=== PATIENT | female | born 1955 | race Caucasian/White ===

== ENCOUNTER → 2019-04-07 12:15 | Outpatient (BNVA) | payer MEDICARE, OTHER, SELFPAY | PROVIDERS: Family Provider Family Medicine; PCP Family Medicine; Visit Provider Family Medicine | DX: M25.511 Pain in right shoulder (principal); G89.11 Acute pain due to trauma; I26.99 Other pulmonary embolism without acute cor pulmonale | CPT/HCPCS: 85610 ==

== ENCOUNTER 2019-05-10 06:00 | Outpatient (RCR) | payer MEDICARE, OTHER, SELFPAY | END 2019-05-28 23:59 | disposition home or self-care (01) | LOC: TPT 06:00 | PROVIDERS: Family Provider Family Medicine; PCP Family Medicine; Referring Provider Family Medicine; Visit Provider Family Medicine | DX: M25.511 Pain in right shoulder (principal); G89.11 Acute pain due to trauma | CPT/HCPCS: 97110; 97161; G0283 ==

== ENCOUNTER → 2019-05-12 15:04 | Outpatient (BNVA) | payer MEDICARE, OTHER, SELFPAY | PROVIDERS: Family Provider Family Medicine; PCP Family Medicine; Visit Provider Family Medicine | DX: I27.82 Chronic pulmonary embolism (principal); Z79.01 Long term (current) use of anticoagulants | CPT/HCPCS: 85610 ==

== ENCOUNTER 2019-05-29 06:00 | Outpatient (RCR) | payer MEDICARE, OTHER, SELFPAY | END 2019-06-28 23:59 | disposition home or self-care (01) | LOC: TPT 06:00 | PROVIDERS: Family Provider Family Medicine; PCP Family Medicine; Referring Provider Family Medicine; Visit Provider Family Medicine | DX: M25.511 Pain in right shoulder (principal); G89.11 Acute pain due to trauma | CPT/HCPCS: 97110; 97530 ==

== ENCOUNTER → 2019-05-30 13:12 | Outpatient (BNVA) | payer MEDICARE, OTHER, SELFPAY | PROVIDERS: Family Provider Family Medicine; PCP Family Medicine; Visit Provider Nurse Practitioner Family | DX: N39.46 Mixed incontinence (principal) | CPT/HCPCS: 81001 ==

== ENCOUNTER 2019-06-01 15:36 | Outpatient (CLI) | payer MEDICARE, OTHER, SELFPAY ==
--- NOTE | 2019-06-01 15:44 | MR_ITS ---
NOTE: Report was unsigned for reason: Order was edited. Original Signature date and time was: 06/01/19 @ 7532 WS: [id number] MRI LEFT SHOULDER NONCONTRAST TECHNIQUE: Sagittal T2, coronal T1, T2 and proton density imaging. Axial gradient PDE imaging. CLINICAL INFORMATION: worsening shoulder pain COMPARISON: None. FINDINGS: Moderate hypertrophic changes at the AC joint. Mild downsloping of the acromion. Prior postoperative changes rotator cuff anchors with rotator cuff repair. Susceptibility artifact degrades images at the rotator cuff insertion. Chronic appearing full-thickness tear involving the supraspinatus tendon. No normal tendon visualized distally. Chronic atrophy of the infraspinatus muscle belly with high-grade tear involving the infraspinatus tendon. Supraspinatus and infraspinatus tendons appear retracted to the level the glenoid. Fatty atrophy of the supraspinatus and infraspinatus muscle bellies worse involving the infraspinatus. Normal teres minor. Subscapularis appears intact. Biceps tendon appears intact within the bicipital groove. Chronic degenerative fraying of the glenoid labrum which appears grossly intact. Normal visualized soft tissues. MTDD
== END 2019-06-01 15:37 | disposition home or self-care (01) ==
LOC: RADWPI 15:40
PROVIDERS: Family Provider Family Medicine; PCP Family Medicine; Visit Provider Family Medicine
DX: M75.102 Unspecified rotator cuff tear or rupture of left shoulder, not specified as traumatic (principal); M25.512 Pain in left shoulder
CPT/HCPCS: 73221

== ENCOUNTER → 2019-06-08 08:44 | Outpatient (BNVA) | payer MEDICARE, OTHER, SELFPAY | PROVIDERS: Family Provider Family Medicine; PCP Family Medicine; Visit Provider Family Medicine | DX: I27.82 Chronic pulmonary embolism (principal) | CPT/HCPCS: 85610 ==

== ENCOUNTER → 2019-07-19 15:15 | Outpatient (BNVA) | payer MEDICARE, OTHER, SELFPAY | PROVIDERS: Family Provider Family Medicine; PCP Family Medicine; Visit Provider Family Medicine | DX: I26.99 Other pulmonary embolism without acute cor pulmonale (principal) | CPT/HCPCS: 85610 ==

== ENCOUNTER → 2019-08-09 16:37 | Outpatient (BNVA) | payer MEDICARE, OTHER, SELFPAY | PROVIDERS: Family Provider Family Medicine; PCP Family Medicine; Visit Provider Family Medicine | DX: I26.99 Other pulmonary embolism without acute cor pulmonale (principal) | CPT/HCPCS: 85610 ==

== ENCOUNTER 2019-08-26 16:51 | Outpatient (CLI) | payer MEDICARE, OTHER, SELFPAY ==
[2019-08-26 17:48] LABS: INR 1.48 (0.8-1.2)
== END 2019-08-26 16:52 | disposition home or self-care (01) ==
LOC: LAB 16:54
PROVIDERS: PCP Family Medicine; Visit Provider Family Medicine
DX: I27.82 Chronic pulmonary embolism (principal)
CPT/HCPCS: 85610

== ENCOUNTER → 2019-09-05 08:29 | Outpatient (BNVA) | payer MEDICARE, OTHER, SELFPAY | PROVIDERS: PCP Family Medicine; Visit Provider Family Medicine | DX: Z86.711 Personal history of pulmonary embolism (principal) | CPT/HCPCS: 85610 ==

== ENCOUNTER → 2019-11-04 10:42 | Outpatient (BNVA) | payer MEDICARE, OTHER, SELFPAY | PROVIDERS: PCP Family Medicine; Visit Provider Family Medicine | DX: E11.9 Type 2 diabetes mellitus without complications (principal); E55.9 Vitamin D deficiency, unspecified | CPT/HCPCS: 80053; 80061; 82306; 83036; 85025 ==

== ENCOUNTER → 2019-12-21 09:55 | Outpatient (BNVA) | payer MEDICARE, OTHER, SELFPAY | PROVIDERS: PCP Family Medicine; Visit Provider Family Medicine | DX: I27.82 Chronic pulmonary embolism (principal); I10 Essential (primary) hypertension; Z79.01 Long term (current) use of anticoagulants | CPT/HCPCS: 85610 ==

== ENCOUNTER → 2020-01-06 13:43 | Outpatient (BNVA) | payer MEDICARE, OTHER, SELFPAY | PROVIDERS: PCP Family Medicine; Visit Provider Family Medicine | DX: I26.99 Other pulmonary embolism without acute cor pulmonale (principal) | CPT/HCPCS: 85610 ==

== ENCOUNTER → 2020-01-23 12:00 | Outpatient (BNVA) | payer MEDICARE, OTHER, SELFPAY | PROVIDERS: PCP Family Medicine; Visit Provider Family Medicine | DX: Z01.419 Encounter for gynecological examination (general) (routine) without abnormal findings (principal); B37.9 Candidiasis, unspecified; Z23 Encounter for immunization; Z12.31 Encounter for screening mammogram for malignant neoplasm of breast; K63.5 Polyp of colon; Z78.9 Other specified health status | CPT/HCPCS: 88175 ==

== ENCOUNTER → 2020-03-16 09:38 | Outpatient (BNVA) | payer MEDICARE, OTHER, SELFPAY | PROVIDERS: PCP Family Medicine; Visit Provider Family Medicine | DX: I27.82 Chronic pulmonary embolism (principal) | CPT/HCPCS: 85610 ==

== ENCOUNTER → 2020-04-11 14:32 | Outpatient (BNVA) | payer MEDICARE, OTHER, SELFPAY | PROVIDERS: PCP Family Medicine; Visit Provider Family Medicine | DX: I27.82 Chronic pulmonary embolism (principal) | CPT/HCPCS: 85610 ==

== ENCOUNTER 2020-04-19 08:57 | Outpatient (CLI) | payer MEDICARE, OTHER, SELFPAY ==
--- NOTE | 2020-04-19 10:00 | MM_ITS ---
WS: [id number] BILATERAL DIGITAL SCREENING MAMMOGRAPHY WITH CAD CLINICAL INFORMATION: screening HISTORY: Screening mammogram. No current complaints. COMPARISON: TECHNIQUE: Bilateral CC and MLO views. FINDINGS: Scattered fibroglandular densities bilaterally. No suspicious focal mass, asymmetry, calcifications, or architectural distortion. No evidence of malignancy. Punctate calcifications. MM/[place] [id number] IMPRESSION: BI-RADS: 2-Benign FOLLOW UP: 1 Year Follow-up Recommend return to annual screening mammography.
== END 2020-04-19 08:58 | disposition home or self-care (01) ==
LOC: RADSHAW 09:03
PROVIDERS: PCP Family Medicine; Visit Provider Family Medicine
DX: Z12.31 Encounter for screening mammogram for malignant neoplasm of breast (principal)
CPT/HCPCS: 77067

== ENCOUNTER → 2020-04-24 10:46 | Outpatient (BNVA) | payer MEDICARE, OTHER, SELFPAY | PROVIDERS: PCP Family Medicine; Visit Provider Nurse Practitioner Family | DX: E11.9 Type 2 diabetes mellitus without complications (principal); E55.9 Vitamin D deficiency, unspecified; Z79.01 Long term (current) use of anticoagulants; M25.511 Pain in right shoulder; G89.29 Other chronic pain; Z78.0 Asymptomatic menopausal state; R42 Dizziness and giddiness | CPT/HCPCS: 80053; 80061; 82306; 83036; 85025; 85610 ==

== ENCOUNTER 2020-04-30 14:14 | Outpatient (CLI) | payer MEDICARE, OTHER, SELFPAY ==
--- NOTE | 2020-04-30 14:42 | CT_ITS ---
WS: [id number] CT RIGHT SHOULDER, NONCONTRAST. HISTORY: M75.101 - Unspecified rotator cuff tear or rupture of right shoulder, not specified as traum atic Technique: All CT scans at [facility] use at least one of these dose optimization techniq ues: automated exposure control; mA and/or kV adjustment per patient size (includes targeted exams wh ere dose is matched to clinical indication); or iterative reconstruction. DLP: 1084.82 mGy-cm. COMPARISON: 06/01/2019. Moderate hypertrophic soft tissue changes at the AC joint and mild osteophytic development at the AC joint. No fractures. Single anchor has been placed in the humeral head. Humeral head is well position ed at the glenoid. No fractures or loose bodies. Moderate atrophy of the infraspinatus muscle and the supraspinatus muscle. Subscapularis and teres minor are normal. Visualized RIGHT lung is clear. No adenopathy or soft tissue masses. CT/CT shoulder RT wo con* [id number] IMPRESSION: 1. Single anchor in the humeral head from prior rotator cuff repair. 2. No fractures. 3. Moderate AC joint arthritis. 4. Moderate atrophy of the infraspinatus and supraspinatus muscles.
== END 2020-04-30 14:15 | disposition home or self-care (01) ==
LOC: RAD 14:17
PROVIDERS: PCP Family Medicine; Visit Provider Orthopaedic Surgery
DX: M75.101 Unspecified rotator cuff tear or rupture of right shoulder, not specified as traumatic (principal); M13.811 Other specified arthritis, right shoulder
CPT/HCPCS: 73200

== ENCOUNTER 2020-06-05 12:58 | Outpatient (CLI) | payer MEDICARE, OTHER, SELFPAY ==
--- NOTE | 2020-06-05 16:56 | ONC CON_ITS ---
Dr. Ramon New Patient Note Patient: Amna Romero Unit #: [id number]: [id number] Dicatated By: Bhanu Ramon M.D.Date of Visit: Jun 05, 2020 Onc MED New Patient/Consult Referring Physician: Dr. JENA DUCKWORTH D.O. Chief Complaint: Factor V Leiden mutation. History of Present Illness: This is a 64-year-old woman with known heterozygosity for the factor V Leiden mutation and with prior history of lower extremity deep vein thrombosis and pulmonary embolism. She has been having ongoing problems with right shoulder pain following an injury she sustained to the right shoulder in a fall back in February 2019. She had previous arthroscopic surgery on the right shoulder in 2006 and she had a rotator cuff repair in 2012. She recently had follow-up at the orthopedic clinic with Dr. Frias, and the plan now is to proceed with reverse total shoulder arthroplasty. Her history is significant in that she had been admitted to the hospital with lower extremity deep vein thrombosis and bilateral pulmonary emboli approximately 15 years ago. She has been on long-term anticoagulation with warfarin, and during that time she has had some superficial thrombophlebitis, but no further deep vein thrombosis and no further pulmonary embolism. She has been feeling pretty good generally, though her energy is not that good. She does stay tired, but she is active. Her ECOG score is 1. She has good appetite. She has no fever, night sweats, or hot flashes. She has some mild exertional dyspnea. She has just occasional cough. She does not complain of chest pain. She has no GI complaints other than some constipation, which she manages adequately with fiber. She has some urinary frequency and incontinence. She has pain in her right shoulder and she has pain in both feet. She does not complain of headache. She does have problems with balance and she also has dizziness/vertigo. She has neuropathy in her feet. She has easy bruising. She has also tended to develop knots at her injection sites at times when she has been on Lovenox. Past Medical History: Her medical history includes anxiety, chronic venous insufficiency of the lower extremities, depression, history of colonic polyps, history of pulmonary embolism, hypertension, lumbosacral radiculopathy, mild cognitive impairment, obstructive sleep apnea, psoriasis, pulmonary hypertension, and type II diabetes. Past Surgical History: Her surgical/procedural history includes left foot surgery in 2019, excision of mass in the area of the left knee in 2018, colonoscopy in 2016, repair of hammertoe right foot in 2016, right rotator cuff repair in 2012, and arthroscopic right shoulder surgery in 2006. Medications: Atorvastatin Calcium 1 (20 mg) Tablet Oral daily, Cholecalciferol 1 (50 mcg ) Tablet Oral daily, Citalopram Hydrobromide 1 (40 mg) Tablet Oral daily, Clobetasol Propionate Cream Topical PRN, Coumadin 1 (2 mg) Tablet Oral daily, Irbesartan-hydroCHLOROthiazide 1 (150-12.5 mg) Tablet Oral b.i.d., Meclizine HCl 1 (25 mg) Tablet Oral t.i.d. PRN, Potassium 1 (99 mg) Tablet Oral daily Allergies: adhesive tape and Melatonin. Social History: Ms. Romero is . She is retired. She is a non-smoker. She does not drink alcohol. Family History: Father of heart attack at age 63. Mother with dementia at age 68. A brother has hypertension. A sister has diabetes. There are cousins on her father side of the family who also have factor V Leiden mutation. Review Of Symptoms: Constitutional - Her energy is not very good, and she does tend to feel tired. She is active, though. Her appetite is good. She has no fever, night sweats, or hot flashes. ECOG score is 1, Eyes - No change in vision, but she has been told she has the beginning of glaucoma, ENMT - No hearing loss or tinnitus. No sinus congestion/drainage. No mouth sores. No sore throat or difficulty swallowing, Hematologic/Lymphatic - She has easy bruising, Respiratory - She has mild shortness of breath. She has just occasional cough. No pleuritic pain or hemoptysis, Cardiovascular - No angina pain. No palpitations, Gastrointestinal - No nausea or vomiting. No heartburn or acid reflux. She has constipation, which she has been managing it adequately with fiber. No blood in the stool or black stools, Genitourinary (F) - No dysuria or hematuria. No urinary frequency. No urgency or incontinence, Musculoskeletal - She has pain in her right shoulder and she has pain in both feet, Integumentary - She has psoriasis. It is adequately managed with topical therapy, Neurologic - She has difficulty with balance and she has dizziness/vertigo. She tends to stumble a lot and she is prone to falling. She also reports having some memory/cognitive issues, Psychiatric - She has anxiety and depression. It is adequately managed on medication. No insomnia. Vital Signs: Performed on Jun 05, 2020 13:54: 8, 6, 0.00, 0.00 sq.m, 96 %, 65 /min, 18 /min, 160/76 mm(hg) (HIGH), 96.6 F (LOW), and 218 lbs (HIGH). Physical Examination: Constitutional - She appears to be in good general health, Eyes - Sclerae nonicteric. Conjunctivae clear, ENMT - No lesions noted in the oral cavity, Neck - No mass or thyromegaly, Hematologic/Lymphatic - No cervical, clavicular, or axillary adenopathy, Respiratory - Lungs are clear with good air movement bilaterally, Cardiovascular - Heart rhythm is regular. There is a II/ systolic murmur. There is no gallop or rub noted, Abdomen - Moderately distended but soft. Liver and spleen are not enlarged. There is no abdominal mass or ascites noted and there is no inguinal adenopathy, Back/Spine - No spine or CVA tenderness noted, Extremities - No edema. There is some deformity on the dorsum of the left foot medially. Dorsalis pedis pulses are palpable bilaterally. There are multiple purpuric lesions on the arms, Integumentary - No rashes. No suspicious skin lesions noted, Neurologic - No focal neurologic deficits noted. Problem List: 1. 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 2. She has a remote history of lower extremity deep vein thrombosis and bilateral pulmonary emboli. She has been on long-term anticoagulation with warfarin with no further thromboembolism. 3. Rotator cuff tear arthropathy of the right shoulder with planned reverse total shoulder arthroplasty. 4. Lumbosacral radiculopathy at L5. 5. Hypertension. 6. Type 2 diabetes, currently not requiring medication. 7. Obstructive sleep apnea. 8. Pulmonary hypertension. 9. Psoriasis. 10. Chronic venous insufficiency of the lower extremities. 11. Mild cognitive impairment. 12. History of colonic polyps. 13. Anxiety/depression. Problems Addressed with this Encounter and Plan: Patient with thrombophilia in association with heterozygosity for the factor V Leiden mutation. She has a remote history of lower extremity deep vein thrombosis and bilateral pulmonary emboli. She has been on long-term anticoagulation with warfarin with no further thromboembolism. She also has rotator cuff tear arthropathy of the right shoulder, and the plan now is to proceed with reverse total shoulder arthroplasty. She is aware that she will be at higher risk for thromboembolism with the procedure. She will need bridging with Lovenox. She has the medication available at the appropriate dosage for her weight, and she will be given specific instructions on her anticoagulation management as soon as we have a date for her procedure. Signed By: Bhanu Ramon M.D. <<Signature on File>>
== END 2020-06-05 12:59 | disposition home or self-care (01) ==
LOC: ONCMED 13:05
PROVIDERS: PCP Family Medicine; Visit Provider Internal Medicine Medical Oncology
DX: D68.51 Activated protein C resistance (principal); M75.101 Unspecified rotator cuff tear or rupture of right shoulder, not specified as traumatic; Z86.718 Personal history of other venous thrombosis and embolism; Z79.01 Long term (current) use of anticoagulants; Z86.711 Personal history of pulmonary embolism
CPT/HCPCS: 99204

== ENCOUNTER → 2020-06-20 14:04 | Outpatient (BNVA) | payer MEDICARE, OTHER, SELFPAY | PROVIDERS: PCP Family Medicine; Visit Provider Family Medicine | DX: Z79.01 Long term (current) use of anticoagulants (principal) | CPT/HCPCS: 85610 ==

== ENCOUNTER → 2020-06-25 15:27 | Outpatient (BNVA) | payer MEDICARE, OTHER, SELFPAY | PROVIDERS: PCP Family Medicine; Visit Provider Family Medicine | DX: D68.51 Activated protein C resistance (principal); M25.511 Pain in right shoulder; G89.29 Other chronic pain; I26.99 Other pulmonary embolism without acute cor pulmonale; Z68.38 Body mass index [BMI] 38.0-38.9, adult | CPT/HCPCS: 85610 ==

== ENCOUNTER → 2020-07-24 10:54 | Outpatient (BNVA) | payer MEDICARE, OTHER, SELFPAY | PROVIDERS: PCP Family Medicine; Visit Provider Orthopaedic Surgery | DX: Z01.812 Encounter for preprocedural laboratory examination (principal); Z20.828 Contact with and (suspected) exposure to other viral communicable diseases; Z20.822 Contact with and (suspected) exposure to COVID-19 | CPT/HCPCS: 87635 ==

== ENCOUNTER 2020-07-30 10:39 | Observation (INO) | payer MEDICARE, OTHER, SELFPAY ==
[2020-07-18 12:46] VITALS: BMI 38.2
--- NOTE | 2020-07-18 13:45 | ANES.PREANE2 ---
Pre-Anesthetic Assessment Pre-Anesthetic Assessment: Height/Weight: Height 1.6 m Weight 97.795 kg Preop Diagnosis: Osteoarthritis Right shoulder Proposed Procedure: Operation Date: 07/30/20 09:40 Proposed Procedures p right reverse total shoulder arthoplasty 74916 M75.101(Right) - Ravinder Frias MD Was Beta Eugenie taken within 24 hours: N/A Was Clonidine taken within 24 hours: N/A Social: Social History: No alcohol and No tobacco Exam: Pre-Anes Outpt Exam: alert, oriented x 3, clear to auscultation bilaterally and regular rate & rhythm Airway: Submandibular: WNL Cervical ROM: WNL MP: 2 Dentition: Full Pulmonary: Pulmonary: Sleep apnea CV/HEM: CV/HEM: DVT and HTN Comments: Factor V def Metabolic: Metabolic: DM and Morbid obesity Neuropsych: Neuropsych: Anxiety and Depression Anesthetic Plan: ASA status: 3 Anesthesia: General and Regional (specify below) (Interscalene) Risk of > 500 ml blood loss (7ml/kg in children): No PFSH Anesthesia PFSH: Medical History (Updated 06/25/20 @ 15:42 by Silvana Bass LPN) Anxiety Colon polyps Diabetes type 2, controlled Enrolled in chronic care management Essential hypertension Hammertoe of right foot REPAIRED History of closed shoulder dislocation Lumbosacral radiculopathy at L5 Minimal cognitive impairment Mixed stress and urge urinary incontinence Morbid obesity with BMI of 40.0-44.9, adult Obstructive sleep apnea of adult Post-menopausal Psoriasis Pulmonary embolism Pulmonary hypertension Recurrent falls while walking Rotator cuff tear arthropathy of right shoulder Synovial cyst of lumbar spine Urinary incontinence Venous insufficiency of both lower extremities Surgical History H/O repair of right rotator cuff H/O shoulder surgery right/2006 History of varicose vein stripping Family History Father Diabetes CAD (coronary artery disease) Hyperlipidemia Social History Smoking and tobacco status: never smoked Alcohol intake: never Adopted: No Caregiver/support person: No Lives independently: No Household members: spouse Marital status: Current occupational status: retired History of recent travel: No Current gender identity: Female Data Anesthesia Cardiac Studies: No Data to Display
[2020-07-30] VITALS (19 sets, daily range): BP systolic 96–139; BP diastolic 63–90; PULSE 75–112; RESP 12–20; TEMP 36.4–37.1; O2SAT 92–100
[2020-07-30] MEDS: gabapentin 300 mg Capsule PO (06:10)
[2020-07-30] MEDS: CELEcoxib 200 mg Capsule 400 MG PO (06:10)
[2020-07-30] MEDS: acetaminophen 500 mg Tablet 1000 MG PO ×3 (06:10→21:16)
[2020-07-30] MEDS: oxyCODONE 20 mg ER (12 HR) Tablet PO (06:24)
[2020-07-30] MEDS: sodium chloride 0.9% 1,000 ML 30 ML IV (06:32)
[2020-07-30] MEDS: fentaNYL 50 mcg/mL INJ 2mL 100 MCG IVP (06:47)
--- NOTE | 2020-07-30 06:54 | P.ANESUD_ITS ---
Pre-Anesthetic Update Pre-Anesthetic Assessment: Date of Surgery/Procedure: 07/30/20 Preop Sirena gnosis: Osteoarthritis Right shoulder Proposed Procedure: Operation Date: 07/30/20 07:00 Proposed Procedures p right reverse total shoulder arthoplasty 00167 M75.101(Right) - Ravinder Frias MD Any changes to Pre-Anesthetic Assessment?: No Last Intake: Intake Last Liquid Date 07/29/20 Last Liquid Time 19:00 Last Solid Date 07/29/20 Last Solid Time 19:00 Vitals: Temperature 98 F 07/30/20 06:13 Temperature Source Temporal Artery S can 07/30/20 06:13 Pulse Rate 75 07/30/20 06:13 Respiratory Rate 16 07/30/20 06:47 Respiratory Effort 07/30/20 06:47 Respiratory Depth Normal 07/30/20 06:47 Respiratory Patter n 07/30/20 06:47 Blood Pressure 131/83 07/30/20 06:13 Blood Pressure Albertina n 99 07/30/20 06:13 Pulse Oximetry 96 07/30/20 06:47 Oxygen Delivery Me thod 07/30/20 06:13 Exam: Pre-Anes Outpt Exam: alert, oriented x 3, clear to auscultation bilaterally and regular rate & rhythm Cardiac Studies: No Data to Display
--- NOTE | 2020-07-30 06:54 | ANES.PROC ---
Anesthesia Procedures Procedure/Date: 07/30/20 Nerve Block ^: Nerve Block 1: Main Anesthesia: general anesthesia Time Out Performed: Yes Consent: requested by attending/covering physician, from patient, risks and benefits reviewed and patient agrees to proceed Nerve block location: interscalene (right) Anesthesia monitors applied: pulse oximetry, EKG and BP cuff Nerve block position: semi sitting Anesthetic Used: ropivicaine 0.5% Amount of anesthesia used (mL): 30 Ultrasound used to: recognize landmarks and visualize and ID brachial plexus Nerve Stimulator Used?: No Interscalene/Femoral BLK: 2 stimuplex 22 g needle used for position and inplane approach Injection: neg aspiration of heme Patient Tolerated Procedure: well Complications: none
--- NOTE | 2020-07-30 07:00 | P.HP_ITS ---
Same Day Surgery H&P Indication for Procedure/HPI DATE OF PROCEDURE: July 30, 2020 CHIEF COMPLAINT/INDICATIONFOR SURGICAL PROCEDURE: Massive tear right rotator cuff. Chronic pain and functional loss. PREOP DIAGNOSIS: Osteoarthritis Right shoulder PLANNED PROCEDRUE: Operation Date: 07/30/20 07:00 Proposed Procedures p right reverse total shoulder arthoplasty 62320 M75.101(Right) - Ravinder Frias MD Medications/Allergies* Home Medications Medication Instructions Recorded Confirmed Type clobetasol 0.05 % topical spray 1 spray TOPICAL DAILY ml 05/30/19 07/30/20 History potassium 99 mg tablet 198 mg PO DAILY 05/30/19 07/30/20 History magnesium 800 mg PO DAILY 07/18/20 07/30/20 History Vitamin D3 150 mcg PO DAILY 07/30/20 07/30/20 History atorvastatin 20 mg PO DAILY 07/30/20 07/30/20 History citalopram 40 mg PO DAILY 07/30/20 07/30/20 History irbesartan-hydrochlorothiazide 1 tab PO DAILY 07/30/20 07/30/20 History Allergies/Adverse Reactions Allergy/AdvReac Type Severity Reaction Status Date / Time melatonin Allergy Unknown rash Verified 06/25/20 15:14 adhesive tape Allergy PEELS SKIN Verified 06/25/20 15:14 Current Medications: Generic Name Dose Route Start Last Admin Trade Name Freq PRN Reason Stop Dose Admin Sodium Chloride 1,000 mls @ 30 mls/hr 07/30/20 05:45 07/30/20 06:32 Sodium Chloride 0.9% IV 07/31/20 05:44 30 mls/hr .Q24H DEREK Administration Pertinent History/Comorbid Conditions* Medical History (Updated 05/02/20 @ 11:36 by Mame Yu MD) Anxiety Colon polyps Diabetes type 2, controlled Enrolled in chronic care management Essential hypertension Hammertoe of right foot REPAIRED History of closed shoulder dislocation Lumbosacral radiculopathy at L5 Minimal cognitive impairment Mixed stress and urge urinary incontinence Morbid obesity with BMI of 40.0-44.9, adult Obstructive sleep apnea of adult Post-menopausal Psoriasis Pulmonary embolism Pulmonary hypertension Recurrent falls while walking Rotator cuff tear arthropathy of right shoulder Synovial cyst of lumbar spine Urinary incontinence Venous insufficiency of both lower extremities Surgical History (Updated 07/01/19 @ 05:35 by Soham Piña DO) H/O repair of right rotator cuff H/O shoulder surgery right/2006 History of varicose vein stripping Family History (Updated 03/29/19 @ 13:55 by Jovita Zambrano LPN, RT) Diabetes Father CAD (coronary artery disease) Father Hyperlipidemia Father Social History Smoking and tobacco status: never smoked Alcohol intake: never Adopted: No Caregiver/support person: No Lives independently: No Household members: spouse Marital status: Current occupational status: retired History of recent travel: No Current gender identity: Female Pertinent Exam Findings alert, oriented x 3, clear to auscultation bilaterally, regular rate & rhythm and operative site marked Recommendations Surgery/Procedure today Coding Level of Care Code Acute Nursing Attendant for Angela Garzon
[2020-07-30] MEDS: tranexamic acid 1,000 mg/10mL SDV 2000 MG IRRIGATION (07:57)
--- NOTE | 2020-07-30 09:59 | XRR_ITS ---
PROCEDURE INFORMATION: Exam: XR Right Shoulder Exam date and time: 07/30/2020 10:30 AM Age: 64 years old Clinical indication: Device placement; Joint replacement hardware; Prior surgery; Surgery date: Post-operative (0-2 days); Surgery type: Sp right shoulder replacement TECHNIQUE: Imaging protocol: XR Right shoulder. Views: 2 or more views. COMPARISON: CT shoulder RT wo con* [id number] 04/30/2020 2:39 PM FINDINGS: Bones/joints: The patient has undergone recent insertion of a total shoulder prosthesis. Gas is present in the soft tissues from the recent surgery. No fractures are seen. Soft tissues: See Bones/joints finding. XR/XR shoulder RT min 2V* [id number] IMPRESSION: Satisfactory appearance of the shoulder prosthesis.
--- NOTE | 2020-07-30 10:03 | P.OP_ITS ---
Operative Report Date of procedure: July 30, 2020 Pre-op Diagnosis: Irrepairable tear rotator cuff right shoulder Post-op diagnosis: same Post-op Findings: Same Procedure Done: Right reverse total shoulder Pathology: none sent Surgeon: Ravinder Frias Anesthesia: General and Nerve Block (Interscalene block) Estimated blood loss (mL): 300 Complications: None Findings: The patient had a massive tear involving the entirety of the supraspinatus and infraspinatus with significant muscular atrophy Disposition: PACU Procedure: An intrascalene blocks provided the holding area. The patient was taken to the operating room and given a general anesthesia. They were given 2 g of Ancef. A Ibarra stand was covered and use to support support the arm A timeout was performed. A 10 cm long incision was made over the deltopectoral groove and dissection carried out with a scalpel blade to the deltopectoral interval. The cephalic vein was identified and retracted laterally. Digital dissection was accomplished to free lesions beneath the deltoid and beneath the coracobrachialis musculature. The biceps was tenodesed to the proximal pe ctoralis major with to Ethibond sutures and divided just proximal to that level. An Nima medium tissue protector was used to retract the pectoralis major and the deltoid. Utilizing cautery the subscapularis was released anteriorly using to the remaining biceps stump as a guide in full-thickness with the capsule and freed distally at the level of the anterior humeral circumflex vessels. The gl enohumeral joint include bending externally rotated and dislocated anteriorly. A freehand cut was made with the saw at the level of the articular cartilage with approximately 30 degrees of retroversion. The proximal humerus was then broached and prepared for a 3B Aequalis Ascend Flex humal stem and covered with a protective plate.. Utilizing electrocautery the glenoid was exposed circumferentially. The centering guide was used to place the central guidepin and the glenoid ream down to sclerotic bone. The 10 degree inferior angle was used on the guidepin and to preferentially remove inferior glenoid and patient's superior inclination of the glenoid. A 25mm Tornier Aequalis PerFORM REversed glenoid baseplate was then secured in place with a central 34 mm screw, a superior locking 34 mm screw, an inferior locking 40 mm screw, an anterior 18 mm screw and a posterior 14 mm screw. A 39 mm standard Aequalis perFORM ReversedGlenosphere was then placed. A trial reduction with the reversed insert with a thickness of +6 mm mm provided adequate stability. The final size 3B Aequalis Awscend Flex humal stem was press-fit into place with a 0mm reversed tray. The Flex Shoulder system 39 mm mm +6 mm mm tray was placed in the shoulder reduced with a stable reduction. The subscapularis was repaired with the 3 locking ultratape sutures through the tendon that were passed through 4 d rill holes from the bicipital groove exiting the greater tuberosity. The sutures were then brought through a 4-hole mini frag plate on the tuberosity and secured which tightly kayla the subscapularis over the lesser tuberosity with the arm held in 30 degrees of external rotation. The sutures were then doubled over in a free needle back through the tendon. The wound was irrigated with a solution of 100 cc of saline with 1 g of tranexamic acid and 80 mg of gentamicin. The deltopectoral interval was closed with 0 Vicryl. The subcutaneous tissues were closed with 2-0 Stratafix. The skin was closed with a running 4-0 Stratafix. Sterile dressings were applied. The patient was placed in a sling extubated and taken to recovery room in stable condition. 1) Tornier Aequalis Ascend Flex 3B stem 2) Flex Shoulder System reversed tray +0mm 3) Flex Shoulder System 39 mm +6 mm reversed insert 4) Aequalis PerFORM Reversed 25 standard baseplate 5) Aequalis perForm Reversed 39 mm standard glenosphere 6) Glenoid screws: central 34 mm, superior 34 mm inferior 40 mm, anterior 18 mm, posterior 14 mm
--- NOTE | 2020-07-30 10:08 | SUR.OPER ---
AT THE END OF THE PROCEDURE, WE TOOK THE DRAPES OFF, THE PATIENT GOT A SKIN TEAR RIGHT ABOVE HER INCISION THAT WAS COVERED WITH TELFA AND TEGADERM. WE NOTICED THAT SHE ALSO HAD A SKIN TEAR ON HER RIGHT FOREARM. THAT WAS COVERED WITH AN OPSITE.
--- NOTE | 2020-07-30 10:12 | P.PCN_ITS ---
PACU note PACU note: VSS, Good respiratory effort, report to SU[employer] Post-Anesthesia Exam: awake
--- NOTE | 2020-07-30 10:12 | PM.PACU ---
PACU note PACU note: VSS, Good respiratory effort, report to NETWORK ADMINISTRATOR Post-Anesthesia Exam: awake
[2020-07-30] MEDS: sodium chloride 0.9% 1,000 ML 80 ML IV ×2 (11:42→22:11)
--- NOTE | 2020-07-30 14:26 | SUR.PHASEI ---
1006- ORAL AIRWAY REMOVED, SIMPLE MASK AT 10LPM SAT 98%
[2020-07-30] MEDS: ceFAZolin 1,000 MG in sodium chloride 0.9% (plus) 50 ML 100 MG IV ×2 (14:40→22:10)
--- NOTE | 2020-07-30 14:51 | ANE.PACU2 ---
Inpatient post-anesthesia follow up: Airway intact: Yes Vital signs: Temperature 98.6 F Pulse Rate 88 Respiratory Rate 15 Blood Pressure 111/77 Pulse Oximetry 95 Oxygen Delivery Me thod Nasal Cannula Oxygen Flow Rate 2 Fraction of Inspir ed Oxygen Hydration adequate: Yes Nausea and vomiting: No Pain level: 1 Mental status: Baseline
--- NOTE | 2020-07-30 15:51 | PM.PN ---
Subjective Subjective: Interval history: Block still intact. No pain Vitals/I&O/Wt Last Vital Signs Temp 98.6 F 07/30/20 11:19 Pulse 88 07/30/20 11:19 Resp 15 07/30/20 11:19 BP 111/77 07/30/20 11:19 Pulse Ox 95 07/30/20 11:19 07/30/20 07/30/20 07/30/20 06:59 14:59 22:59 Intake Total 316.5 / 316.5 Output Total 300 / 300 Balance 16.5 / 16.5 Physical Exam Narrative: EXAM NARRATIVE: Dressing clean and dry A&P Assessment and plan (1) Rotator cuff tear arthropathy of right shoulder: Status: Resolved (2) Status post reverse arthroplasty of right shoulder: Status: Acute Attestations Medical Necessity Statement*: Slow progress thus far with physical therapy. Will discharge home tomorrow if ambulatory. May need fci. Coding Level of Care Code Acute Property Management Intern for Angela Garzon Diagnoses Rotator cuff tear arthropathy of right shoulder M75.101; M12.811 Status post reverse arthroplasty of right shoulder Z96.611
[2020-07-30 17:11] LABS: INR 0.99 (0.8-1.2)
[2020-07-30] MEDS: CELEcoxib 200 mg Capsule PO (17:26)
[2020-07-30] MEDS: warfarin 2 mg Tablet 4 MG PO (17:26)
--- NOTE | 2020-07-30 19:59 | PC.NURSE ---
Pt informed this nurse that her had checked himself out of rehab and was on his way here. She expressed she would not like him to visit at this time. This nurse informed the day and night charge nurses, Alesia and Marsha, and night security, Keon. An attempt was made to inform the ER admissions desk, but there was no answer.
[2020-07-31] VITALS (9 sets, daily range): BP systolic 111–130; BP diastolic 66–79; PULSE 66–79; RESP 16–18; TEMP 36.4–36.6; O2SAT 93–99
[2020-07-31] MEDS: oxyCODONE 5 mg IR Tab/Cap PO ×3 (00:16→11:04)
[2020-07-31] MEDS: ceFAZolin 1,000 MG in sodium chloride 0.9% (plus) 50 ML 100 MG IV (06:22)
[2020-07-31] MEDS: acetaminophen 500 mg Tablet 1000 MG PO ×2 (06:23→13:56)
[2020-07-31] MEDS: cholecalciferol (vitamin D3) 1,000 unit Tablet 2000 UNIT PO (08:49)
[2020-07-31] MEDS: magnesium oxide 400 mg tablet 800 MG PO (08:49)
[2020-07-31] MEDS: losartan 50 mg Tablet PO (08:49)
[2020-07-31] MEDS: hydroCHLOROthiazide 25 mg Tablet 12.5 MG PO (08:50)
[2020-07-31] MEDS: atorvastatin 40 mg Tablet 20 MG PO (08:50)
[2020-07-31] MEDS: CELEcoxib 200 mg Capsule PO (08:50)
[2020-07-31] MEDS: citalopram 20 mg Tablet 40 MG PO (08:50)
[2020-07-31] MEDS: warfarin 2 mg Tablet 4 MG PO (13:56)
--- NOTE | 2020-08-01 16:36 | P.DS_ITS ---
Discharge Providers Date of Admission: 07/30/20 10:39 Date of Discharge: July 31, 2020 Attending Provider at Admission: Ravinder Frias MD Attending Provider at Discharge: Ravinder Frias MD Primary Care Provider: Mame Yu MD Diagnoses at Discharge Discharge Diagnosis (1) Rotator cuff tear arthropathy of right shoulder: Status: Resolved (2) Status post reverse arthroplasty of right shoulder: Status: Acute Permanent problem details: We will mobilize with therapy. Occupational therapy to work on passive range of motion (3) Factor 5 Leiden mutation, heterozygous: Status: Acute Reason for Visit Reason for Visit: right reverse total shoulder arthoplasty 97375 Hospital Course Hospital Course The patient was admitted after elective right reverse total shoulder arthroplasty. Her pain was well controlled with the interscalene block and oral medications. By the first day she was independent with ambulation and conrado ating her home exercise program. She was begun on her Coumadin the evening of of surgery. He was discharged home on the first postoperative day. Physical Exam Narrative: EXAM NARRATIVE: On the day of discharge her incision was clean and free of drainage. She could fire her deltoid and her biceps. No distal neurovascular deficits were noted. Discharge Data Data Completed and Pending: Completed Studies During Hospitalization Category Date Time Status XR shoulder RT mi n 2V* [id number] Routin e Exams 07/30/20 09:59 Completed Vitals: Last Vital Signs Temp 97.6 F 07/31/20 15:09 Pulse 66 07/31/20 15:09 Resp 18 07/31/20 15:09 BP 119/79 07/31/20 15:09 Pulse Ox 99 07/31/20 15:09 Discharge Plan Discharge Patient Disposition: Home Condition: Stable Prescriptions: New celecoxib 200 mg capsule 200 mg PO Q12H 15 Days Qty: 30 RF: 0 oxycodone 5 mg tablet 5 mg PO Q4H PRN (Reason: pain) Qty: 40 RF: 0 acetaminophen 500 mg capsule 1,000 mg PO Q8H 14 Days Qty: 84 RF: 0 Continued clobetasol 0.05 % spray,non-aerosol 1 spray TOPICAL DAILY RF: 0 potassium 99 mg tablet 198 mg PO DAILY RF: 0 warfarin 2 mg tablet See Rx Instructions .ROUTE .COMPLEX Qty: 60 RF: 2 magnesium 200 mg Tablet 800 mg PO DAILY RF: 0 atorvastatin 20 mg tablet 20 mg PO DAILY RF: 0 citalopram 40 mg tablet 40 mg PO DAILY RF: 0 irbesartan-hydrochlorothiazide 150-12.5 mg tablet 1 tab PO DAILY RF: 0 Vitamin D3 50 mcg (2,000 unit) tablet 150 mcg PO DAILY RF: 0 Discharge Orders: Discharge Order (Routine); Ordered 07/31/20 Ordered By: Ravinder Frias Referrals: Ravinder Frias MD [Physician] - 08/14/20 1:15 pm Discharge Diet: Advance as tolerated Discharge Activity: Resume usual activity Patient Instructions: Oxycodone, Rapid Release (By mouth), Celecoxib (By mouth), Shoulder Arthroplasty (DC), Opioid Safety Activity Restrictions/Additional Instructions: Okay to shower. No soaking incision in tub Apply FirstIce up to 20 min/hr for pain and swelling Take Celebrex twice a day for the next 15 days for pain , discontinue other anti-inflammatories Take Tylenol 500mg (up to 2 tabs) 3 times a day for mild pain take oxycodone for breakthrough pain. Exercises per Occupational Therapy Discharge Attestations Time Spent in Discharge Care*: other Quality Metrics Clinical Quality Measures During this hospital stay, did patient experience: None Coding Level of Care Code Acute Chg FW DC note Diagnoses Rotator cuff tear arthropathy of right shoulder M75.101; M12.811 Status post reverse arthroplasty of right shoulder Z96.611 Factor 5 Leiden mutation, heterozygous D68.51
== END 2020-07-31 15:11 | disposition home or self-care (01) ==
LOC: MEDSURG 10:39
PROVIDERS: Admitting Provider Orthopaedic Surgery; PCP Family Medicine; Visit Provider Orthopaedic Surgery
PROC: (CPT 23472; principal; 2020-07-30 07:00)
DX: M75.101 Unspecified rotator cuff tear or rupture of right shoulder, not specified as traumatic (principal); M19.011 Primary osteoarthritis, right shoulder; F41.9 Anxiety disorder, unspecified; E11.9 Type 2 diabetes mellitus without complications; Z86.010 Personal history of colon polyps; E66.01 Morbid (severe) obesity due to excess calories; Z68.38 Body mass index [BMI] 38.0-38.9, adult; Z91.81 History of falling; Z86.711 Personal history of pulmonary embolism; Z82.49 Family history of ischemic heart disease and other diseases of the circulatory system; Z83.3 Family history of diabetes mellitus
CPT/HCPCS: 23472; 36415; 64415; 73030; 76942; 85610; 96374; 97110; 97116; 97162; 97166; 97530; C1713; C1776; G0378; J0690; J1580; J2405; J2704; J2795; J3010; J3490; J7030

== ENCOUNTER → 2020-08-02 10:13 | Outpatient (BNVA) | payer MEDICARE, OTHER, SELFPAY | PROVIDERS: PCP Family Medicine; Visit Provider Family Medicine | DX: Z79.01 Long term (current) use of anticoagulants (principal) | CPT/HCPCS: 85610 ==

== ENCOUNTER → 2020-08-06 09:49 | Outpatient (BNVA) | payer MEDICARE, OTHER, SELFPAY | PROVIDERS: PCP Family Medicine; Visit Provider Internal Medicine Medical Oncology | DX: Z79.01 Long term (current) use of anticoagulants (principal) | CPT/HCPCS: 85610 ==

== ENCOUNTER → 2020-08-16 10:57 | Outpatient (BNVA) | payer MEDICARE, OTHER, SELFPAY | PROVIDERS: PCP Family Medicine; Visit Provider Internal Medicine Medical Oncology | DX: Z79.01 Long term (current) use of anticoagulants (principal) | CPT/HCPCS: 85610 ==

== ENCOUNTER 2020-08-30 06:00 | Outpatient (RCR) | payer MEDICARE, OTHER, SELFPAY | END 2020-09-26 23:59 | disposition home or self-care (01) | LOC: TPT 06:00 | PROVIDERS: PCP Family Medicine; Referring Provider Orthopaedic Surgery; Visit Provider Orthopaedic Surgery | DX: Z47.89 Encounter for other orthopedic aftercare (principal) | CPT/HCPCS: 97110; 97140; 97162 ==

== ENCOUNTER → 2020-08-31 11:30 | Outpatient (BNVA) | payer MEDICARE, OTHER, SELFPAY | PROVIDERS: PCP Family Medicine; Visit Provider Internal Medicine Medical Oncology | DX: D68.51 Activated protein C resistance (principal) | CPT/HCPCS: 85610 ==

== ENCOUNTER → 2020-09-11 13:49 | Outpatient (BNVA) | payer MEDICARE, OTHER, SELFPAY | PROVIDERS: PCP Family Medicine; Visit Provider Orthopaedic Surgery | DX: Z47.1 Aftercare following joint replacement surgery (principal); Z96.611 Presence of right artificial shoulder joint | CPT/HCPCS: 73030 ==

== ENCOUNTER → 2020-09-19 10:04 | Outpatient (BNVA) | payer MEDICARE, OTHER, SELFPAY | PROVIDERS: PCP Family Medicine; Visit Provider Family Medicine | DX: Z79.01 Long term (current) use of anticoagulants (principal) | CPT/HCPCS: 85610 ==

== ENCOUNTER 2020-09-27 06:00 | Outpatient (RCR) | payer MEDICARE, OTHER, SELFPAY | END 2020-10-27 23:59 | disposition home or self-care (01) | LOC: TPT 06:00 | PROVIDERS: PCP Family Medicine; Referring Provider Orthopaedic Surgery; Visit Provider Orthopaedic Surgery | DX: Z47.89 Encounter for other orthopedic aftercare (principal) | CPT/HCPCS: 97110; 97140; 97164 ==

== ENCOUNTER 2020-10-28 06:00 | Outpatient (RCR) | payer MEDICARE, OTHER, SELFPAY | END 2020-11-27 23:59 | disposition home or self-care (01) | LOC: TPT 06:00 | PROVIDERS: PCP Family Medicine; Referring Provider Orthopaedic Surgery; Visit Provider Orthopaedic Surgery | DX: Z47.89 Encounter for other orthopedic aftercare (principal) | CPT/HCPCS: 97110; 97140; 97164 ==

== ENCOUNTER → 2020-11-06 14:38 | Outpatient (BNVA) | payer MEDICARE, OTHER, SELFPAY | PROVIDERS: PCP Family Medicine; Visit Provider Family Medicine | DX: E11.9 Type 2 diabetes mellitus without complications (principal); H65.03 Acute serous otitis media, bilateral; I10 Essential (primary) hypertension | CPT/HCPCS: 80053; 80061; 82306; 83036; 84443; 85025; 85610 ==

== ENCOUNTER 2020-11-28 06:00 | Outpatient (RCR) | payer MEDICARE, OTHER, SELFPAY | END 2020-12-27 23:59 | disposition home or self-care (01) | LOC: TPT 06:00 | PROVIDERS: PCP Family Medicine; Referring Provider Orthopaedic Surgery; Visit Provider Orthopaedic Surgery | DX: Z47.1 Aftercare following joint replacement surgery (principal); Z96.611 Presence of right artificial shoulder joint | CPT/HCPCS: 97110; 97164 ==

== ENCOUNTER → 2021-01-28 14:00 | Outpatient (BNVA) | payer MEDICARE, OTHER, SELFPAY | PROVIDERS: PCP Family Medicine; Visit Provider Family Medicine | DX: I26.99 Other pulmonary embolism without acute cor pulmonale (principal); H65.06 Acute serous otitis media, recurrent, bilateral | CPT/HCPCS: 85610 ==

== ENCOUNTER → 2021-03-18 14:22 | Outpatient (BNVA) | payer MEDICARE, OTHER, SELFPAY | PROVIDERS: PCP Family Medicine; Visit Provider Family Medicine | DX: I26.99 Other pulmonary embolism without acute cor pulmonale (principal) | CPT/HCPCS: 85610 ==

== ENCOUNTER → 2021-04-30 14:05 | Outpatient (BNVA) | payer MEDICARE, OTHER, SELFPAY | PROVIDERS: PCP Family Medicine; Visit Provider Family Medicine | DX: I26.99 Other pulmonary embolism without acute cor pulmonale (principal) | CPT/HCPCS: 85610 ==

== ENCOUNTER → 2021-06-13 13:36 | Outpatient (BNVA) | payer MEDICARE, OTHER, SELFPAY | PROVIDERS: PCP Family Medicine; Visit Provider Family Medicine | DX: I26.99 Other pulmonary embolism without acute cor pulmonale (principal) | CPT/HCPCS: 85610 ==

== ENCOUNTER → 2021-07-02 11:49 | Outpatient (BNVA) | payer MEDICARE, OTHER, SELFPAY | PROVIDERS: PCP Family Medicine; Visit Provider Family Medicine | DX: I26.99 Other pulmonary embolism without acute cor pulmonale (principal); E55.9 Vitamin D deficiency, unspecified; E11.9 Type 2 diabetes mellitus without complications; I10 Essential (primary) hypertension | CPT/HCPCS: 80053; 80061; 82306; 83036; 84443; 85025; 85610 ==

== ENCOUNTER → 2021-08-13 09:42 | Outpatient (BNVA) | payer MEDICARE, OTHER, SELFPAY | PROVIDERS: PCP Family Medicine; Visit Provider Surgery | DX: K63.5 Polyp of colon (principal); R32 Unspecified urinary incontinence; I26.99 Other pulmonary embolism without acute cor pulmonale | CPT/HCPCS: 99204 ==

== ENCOUNTER → 2021-09-17 13:17 | Outpatient (BNVA) | payer MEDICARE, OTHER, SELFPAY | PROVIDERS: PCP Family Medicine; Visit Provider Family Medicine | DX: D68.51 Activated protein C resistance (principal); I26.99 Other pulmonary embolism without acute cor pulmonale | CPT/HCPCS: 85610 ==

== ENCOUNTER → 2021-10-01 15:45 | Outpatient (BNVA) | payer MEDICARE, OTHER, SELFPAY | PROVIDERS: PCP Family Medicine; Visit Provider Family Medicine | DX: I26.99 Other pulmonary embolism without acute cor pulmonale (principal) | CPT/HCPCS: 85610 ==

== ENCOUNTER → 2021-10-21 11:32 | Outpatient (BNVA) | payer MEDICARE, OTHER, SELFPAY | PROVIDERS: PCP Family Medicine; Visit Provider Family Medicine | DX: I26.99 Other pulmonary embolism without acute cor pulmonale (principal) | CPT/HCPCS: 85610 ==

== ENCOUNTER 2021-10-23 07:15 | Day surgery (SDC) | payer MEDICARE, OTHER, SELFPAY ==
[2021-10-21 10:10] VITALS: BMI 33.5
--- NOTE | 2021-10-23 06:22 | ANES.PREANE2 ---
Pre-Anesthetic Assessment Height/Weight: Height 1.63 m Weight 88.451 kg Operation Date: 10/23/21 08:30 Proposed Procedures p Colonoscopy 09851 K63.5(Not Applicable) - Jonathan Louie MD Familial anesthetic complications: none Was Beta Eugenie taken within 24 hours: N/A Was Clonidine taken within 24 hours: N/A Social No alcohol and No tobacco Exam alert, oriented x 3, clear to auscultation bilaterally and regular rate & rhythm Airway Submandibular: within normal limits Cervical ROM: within normal limits Mallampati: Class II Dentition: full Pulmonary Sleep Apnea Hx of PE Hx of pneumonitis CV/HEM Hypertension Factor 5 Leiden mutation Stress incontinence Metabolic Diabetes Mellitus [facility] [place] Osteoarthritis/DJD Psoriasis Neuropsych Anxiety Mild cognitive impairment Anesthetic Plan ASA status: 3 Anesthesia: Anesthesia Evaluation and MAC Other: I discussed with the patient risks, goals, and benefits of MAC and general anesthesia. We discussed spectrum of MAC anesthesia including conversion to general as well as possibility of recall of intraoperative stimuli including discomfort/pain. Patient agrees to proceed with MAC. Risk of > 500 ml blood loss (7ml/kg in children): No Medications/Allergies Home Medications Medication Instructions Recorded Confirmed Last Taken Type clobetasol 0.05 % topical spray 1 spray topical DAILY 05/30/19 10/23/21 10/22/21 History potassium 99 mg tablet 198 mg PO DAILY 05/30/19 10/23/21 10/22/21 History magnesium 200 mg tablet 800 mg PO DAILY 07/18/20 10/23/21 10/22/21 History warfarin 2 mg tablet See Rx Instructions .Route 08/21/21 10/23/21 10/22/21 Rx .COMPLEX #60 tabs atorvastatin 20 mg tablet 20 mg PO DAILY 10/21/21 10/23/21 10/22/21 History cholecalciferol (vitamin D3) 50 150 mcg PO DAILY 10/21/21 10/23/21 10/22/21 History mcg (2,000 unit) tablet citalopram 40 mg tablet 40 mg PO DAILY 10/21/21 10/23/21 10/22/21 History enoxaparin 100 mg/mL subcutaneous 100 mg SUBCUT Q12H 10/21/21 10/23/21 10/22/21 History syringe (Lovenox) irbesartan 150 1 tab PO DAILY 10/21/21 10/23/2122 History mg-hydrochlorothiazide 12.5 mg tablet Allergies Allergy/AdvReac Type Severity Reaction Status Date / Time melatonin Allergy Unknown rash Verified 10/23/21 07:32 adhesive tape Allergy PEELS SKIN Verified 10/23/21 07:32 COUNTS INCLUDE 234 BEDS AT THE [facility] Anesthesia Medical History Anxiety Colon polyps Diabetes type 2, controlled Enrolled in chronic care management Essential hypertension Factor 5 Leiden mutation, heterozygous Hammertoe of right foot REPAIRED History of closed shoulder dislocation Lumbosacral radiculopathy at L5 Minimal cognitive impairment Mixed stress and urge urinary incontinence Morbid obesity with BMI of 40.0-44.9, adult Obstructive sleep apnea of adult Post-menopausal Psoriasis Pulmonary embolism Pulmonary hypertension Recurrent falls while walking Rotator cuff tear arthropathy of right shoulder Synovial cyst of lumbar spine Urinary incontinence Venous insufficiency of both lower extremities Surgical History H/O repair of right rotator cuff H/O shoulder surgery right/2006 History of colonoscopy History of varicose vein stripping Family History Father Diabetes CAD (coronary artery disease) Hyperlipidemia Social History Smoking and tobacco status: never smoked Alcohol intake: never Adopted: No Caregiver/support person: No Lives independently: No Household members: spouse Marital status: Current occupational status: retired History of recent travel: No Current gender identity: Female Data Anesthesia Cardiac Studies: No Data to Display
[2021-10-23 07:34] VITALS: BP 145/89; PULSE 62; RESP 18; TEMP 36.3; O2SAT 95
--- NOTE | 2021-10-23 07:42 | W.PM.OPSFHP ---
Same Day Surgery H&P Indication for Procedure/HPI DATE OF PROCEDURE: October 23, 2021 CHIEF COMPLAINT/INDICATIONFOR SURGICAL PROCEDURE: colonoscpy PREOP DIAGNOSIS: diagnostic PLANNED PROCEDURE: Operation Date: 10/23/21 08:30 Proposed Procedures p Colonoscopy 11419 K63.5(Not Applicable) - Jonathan Louie MD Medications/Allergies* Home Medications Medication Instructions Recorded Confirmed Type clobetasol 0.05 % topical spray 1 spray topical DAILY 05/30/19 10/23/21 History potassium 99 mg tablet 198 mg PO DAILY 05/30/19 10/23/21 History magnesium 200 mg tablet 800 mg PO DAILY 07/18/20 10/23/21 History atorvastatin 20 mg tablet 20 mg PO DAILY 10/21/21 10/23/21 History cholecalciferol (vitamin D3) 50 150 mcg PO DAILY 10/21/21 10/23/21 History mcg (2,000 unit) tablet citalopram 40 mg tablet 40 mg PO DAILY 10/21/21 10/23/21 History enoxaparin 100 mg/mL subcutaneous 100 mg SUBCUT Q12H 10/21/21 10/23/21 History syringe (Lovenox) irbesartan 150 1 tab PO DAILY 10/21/21 10/23/21 History mg-hydrochlorothiazide 12.5 mg tablet Allergies/Adverse Reactions Allergy/AdvReac Type Severity Reaction Status Date / Time melatonin Allergy Unknown rash Verified 10/23/21 07:32 adhesive tape Allergy PEELS SKIN Verified 10/23/21 07:32 Pertinent History/Comorbid Conditions* Medical History (Updated 08/13/21 @ 10:05 by Jonathan Louie MD) Anxiety Colon polyps Diabetes type 2, controlled Enrolled in chronic care management Essential hypertension Factor 5 Leiden mutation, heterozygous Hammertoe of right foot REPAIRED History of closed shoulder dislocation Lumbosacral radiculopathy at L5 Minimal cognitive impairment Mixed stress and urge urinary incontinence Morbid obesity with BMI of 40.0-44.9, adult Obstructive sleep apnea of adult Post-menopausal Psoriasis Pulmonary embolism Pulmonary hypertension Recurrent falls while walking Rotator cuff tear arthropathy of right shoulder Synovial cyst of lumbar spine Urinary incontinence Venous insufficiency of both lower extremities Surgical History (Updated 08/13/21 @ 10:05 by Jonathan Louie MD) H/O repair of right rotator cuff H/O shoulder surgery /2006 History of colonoscopy History of varicose vein stripping Family History (Updated 03/29/19 @ 13:55 by Jovita Zambrano LPN, RT) Diabetes Father CAD (coronary artery disease) Father Hyperlipidemia Father Social History Smoking and tobacco status: never smoked Alcohol intake: never Adopted: No Caregiver/support person: No Lives independently: No Household members: spouse Marital status: Current occupational status: retired History of recent travel: No Current gender identity: Female Pertinent Exam Findings alert, oriented x 3 and regular rate & rhythm Recommendations Surgery/Procedure today Coding Level of Care Code Acute Faucet Polisher for Angela Garzon
[2021-10-23] MEDS: sodium chloride 0.9% 1,000 ML 30 ML IV (07:48)
[2021-10-23 08:18] VITALS: BP 101/63; PULSE 58; RESP 16; TEMP 36.4; O2SAT 94
[2021-10-23 08:29] VITALS: BP 109/66; PULSE 57; RESP 16; O2SAT 96
--- NOTE | 2021-10-23 11:08 | ANE.PACU2 ---
Inpatient post-anesthesia follow up: Vital signs: Temperature 97.5 F Pulse Rate 57 Respiratory Rate 16 Blood Pressure 109/66 Pulse Oximetry 96 Oxygen Delivery Me thod Room Air Oxygen Flow Rate Fraction of Inspir ed Oxygen
== END 2021-10-23 08:45 | disposition home or self-care (01) ==
PROVIDERS: PCP Family Medicine; Visit Provider Surgery
PROC: 0DJD8ZZ Inspection of Lower Intestinal Tract, Via Natural or Artificial Opening Endoscopic (ICD-10-PCS; CPT 45378; principal; 2021-10-23 08:30)
DX: K57.30 Diverticulosis of large intestine without perforation or abscess without bleeding (principal); Z86.010 Personal history of colon polyps; I10 Essential (primary) hypertension; E11.9 Type 2 diabetes mellitus without complications; G47.30 Sleep apnea, unspecified
CPT/HCPCS: 45378; J2704; J7030

== ENCOUNTER → 2021-10-25 10:13 | Outpatient (BNVA) | payer MEDICARE, OTHER, SELFPAY | PROVIDERS: PCP Family Medicine; Visit Provider Family Medicine | DX: I26.99 Other pulmonary embolism without acute cor pulmonale (principal) | CPT/HCPCS: 85610 ==

== ENCOUNTER → 2021-10-28 13:46 | Outpatient (BNVA) | payer MEDICARE, OTHER, SELFPAY | PROVIDERS: PCP Family Medicine; Visit Provider Family Medicine | DX: I26.99 Other pulmonary embolism without acute cor pulmonale (principal) | CPT/HCPCS: 85610 ==

== ENCOUNTER → 2021-10-30 14:29 | Outpatient (BNVA) | payer MEDICARE, OTHER, SELFPAY | PROVIDERS: PCP Family Medicine; Visit Provider Family Medicine | DX: I26.99 Other pulmonary embolism without acute cor pulmonale (principal) | CPT/HCPCS: 85610 ==

== ENCOUNTER → 2021-11-01 14:04 | Outpatient (BNVA) | payer MEDICARE, OTHER, SELFPAY | PROVIDERS: PCP Family Medicine; Visit Provider Nurse Practitioner Family | DX: Z98.890 Other specified postprocedural states (principal) | CPT/HCPCS: 85610 ==

== ENCOUNTER → 2021-11-18 09:39 | Outpatient (BNVA) | payer MEDICARE, OTHER, SELFPAY | PROVIDERS: PCP Family Medicine; Visit Provider Family Medicine | DX: I26.99 Other pulmonary embolism without acute cor pulmonale (principal) | CPT/HCPCS: 85610 ==

== ENCOUNTER → 2021-12-10 14:52 | Outpatient (BNVA) | payer MEDICARE, OTHER, SELFPAY | PROVIDERS: PCP Family Medicine; Visit Provider Obstetrics & Gynecology | DX: R32 Unspecified urinary incontinence (principal) | CPT/HCPCS: 81000 ==

== ENCOUNTER → 2021-12-20 13:14 | Outpatient (BNVA) | payer MEDICARE, OTHER, SELFPAY | PROVIDERS: PCP Family Medicine; Visit Provider Family Medicine | DX: Z79.01 Long term (current) use of anticoagulants (principal) | CPT/HCPCS: 85610 ==

== ENCOUNTER → 2022-01-13 09:03 | Outpatient (BNVA) | payer MEDICARE, OTHER, SELFPAY | PROVIDERS: PCP Family Medicine; Visit Provider Family Medicine | DX: I26.99 Other pulmonary embolism without acute cor pulmonale (principal) | CPT/HCPCS: 85610 ==

== ENCOUNTER → 2022-01-20 09:00 | Outpatient (BNVA) | payer MEDICARE, OTHER, SELFPAY | PROVIDERS: PCP Family Medicine; Visit Provider Family Medicine | DX: Z98.890 Other specified postprocedural states (principal) | CPT/HCPCS: 85610 ==

== ENCOUNTER → 2022-01-24 09:30 | Outpatient (BNVA) | payer MEDICARE, OTHER, SELFPAY | PROVIDERS: PCP Family Medicine; Visit Provider Family Medicine | DX: I26.99 Other pulmonary embolism without acute cor pulmonale (principal); Z98.890 Other specified postprocedural states | CPT/HCPCS: 85610 ==

== ENCOUNTER → 2022-02-05 17:56 | Outpatient (BNVA) | payer MEDICARE, OTHER, SELFPAY | PROVIDERS: PCP Family Medicine; Visit Provider Family Medicine | DX: Z98.890 Other specified postprocedural states (principal) | CPT/HCPCS: 85610 ==

== ENCOUNTER → 2022-02-12 16:46 | Outpatient (BNVA) | payer MEDICARE, OTHER, SELFPAY | PROVIDERS: PCP Family Medicine; Visit Provider Family Medicine | DX: M54.30 Sciatica, unspecified side (principal); Z79.01 Long term (current) use of anticoagulants | CPT/HCPCS: 85610 ==

== ENCOUNTER → 2022-04-02 14:46 | Outpatient (BNVA) | payer MEDICARE, OTHER, SELFPAY | PROVIDERS: PCP Family Medicine; Visit Provider Family Medicine | DX: I26.99 Other pulmonary embolism without acute cor pulmonale (principal); Z79.01 Long term (current) use of anticoagulants | CPT/HCPCS: 85610 ==

== ENCOUNTER → 2022-04-09 14:10 | Outpatient (BNVA) | payer MEDICARE, OTHER, SELFPAY | PROVIDERS: PCP Family Medicine; Visit Provider Family Medicine | DX: I10 Essential (primary) hypertension (principal); E11.9 Type 2 diabetes mellitus without complications; E55.9 Vitamin D deficiency, unspecified; F41.9 Anxiety disorder, unspecified | CPT/HCPCS: 80053; 80061; 82306; 83036; 83735; 84443; 85025 ==

== ENCOUNTER → 2022-05-08 14:08 | Outpatient (BNVA) | payer MEDICARE, OTHER, SELFPAY | PROVIDERS: PCP Family Medicine; Visit Provider Family Medicine | DX: I26.99 Other pulmonary embolism without acute cor pulmonale (principal) | CPT/HCPCS: 85610 ==

== ENCOUNTER → 2022-05-14 15:04 | Outpatient (BNVA) | payer MEDICARE, OTHER, SELFPAY | PROVIDERS: PCP Family Medicine; Visit Provider Family Medicine | DX: D68.51 Activated protein C resistance (principal); I10 Essential (primary) hypertension; E11.9 Type 2 diabetes mellitus without complications; E78.5 Hyperlipidemia, unspecified | CPT/HCPCS: 85610 ==

== ENCOUNTER → 2022-05-28 14:45 | Outpatient (BNVA) | payer MEDICARE, OTHER, SELFPAY | PROVIDERS: PCP Family Medicine; Visit Provider Family Medicine | DX: I26.99 Other pulmonary embolism without acute cor pulmonale (principal) | CPT/HCPCS: 85610 ==

== ENCOUNTER → 2022-07-10 15:13 | Outpatient (BNVA) | payer MEDICARE, OTHER, SELFPAY | PROVIDERS: PCP Family Medicine; Visit Provider Family Medicine | DX: I26.99 Other pulmonary embolism without acute cor pulmonale (principal) | CPT/HCPCS: 85610 ==

== ENCOUNTER → 2022-07-30 15:02 | Outpatient (BNVA) | payer MEDICARE, OTHER, SELFPAY | PROVIDERS: PCP Family Medicine; Visit Provider Family Medicine | DX: I26.99 Other pulmonary embolism without acute cor pulmonale (principal) | CPT/HCPCS: 85610 ==

== ENCOUNTER → 2022-09-01 12:50 | Outpatient (BNVA) | payer MEDICARE, OTHER, SELFPAY | PROVIDERS: PCP Family Medicine; Visit Provider Family Medicine | DX: I26.99 Other pulmonary embolism without acute cor pulmonale (principal) | CPT/HCPCS: 85610 ==

== ENCOUNTER → 2022-10-15 15:05 | Outpatient (BNVA) | payer MEDICARE, OTHER, SELFPAY | PROVIDERS: PCP Family Medicine; Visit Provider Family Medicine | DX: I26.99 Other pulmonary embolism without acute cor pulmonale (principal) | CPT/HCPCS: 85610 ==

== ENCOUNTER → 2022-10-30 11:54 | Outpatient (BNVA) | payer MEDICARE, OTHER, SELFPAY | PROVIDERS: PCP Family Medicine; Visit Provider Family Medicine | DX: E78.5 Hyperlipidemia, unspecified (principal); E11.9 Type 2 diabetes mellitus without complications; I10 Essential (primary) hypertension | CPT/HCPCS: 80053; 80061; 83036; 85025 ==

== ENCOUNTER → 2022-12-16 11:00 | Outpatient (BNVA) | payer MEDICARE, OTHER, SELFPAY | PROVIDERS: PCP Family Medicine; Visit Provider Family Medicine | DX: I26.99 Other pulmonary embolism without acute cor pulmonale (principal) | CPT/HCPCS: 85610 ==

== ENCOUNTER 2023-02-02 10:59 | Oncology outpatient (recurring) (ONCR) | payer MEDICARE, OTHER, SELFPAY ==
[2023-02-05 20:20] LABS: Factor 5 Leiden Mutation NEGATIVE
== END 2023-02-26 23:59 | disposition home or self-care (01) ==
PROVIDERS: PCP Family Medicine; Visit Provider Internal Medicine
DX: D68.51 Activated protein C resistance (principal); I26.99 Other pulmonary embolism without acute cor pulmonale; Z79.01 Long term (current) use of anticoagulants
CPT/HCPCS: 36415; 81241; 85610; 99214

== ENCOUNTER → 2023-02-18 18:18 | Outpatient (BNVA) | payer MEDICARE, OTHER, SELFPAY | PROVIDERS: PCP Family Medicine; Visit Provider Family Medicine | DX: Z79.01 Long term (current) use of anticoagulants (principal) | CPT/HCPCS: 85610 ==

== ENCOUNTER → 2023-03-26 15:16 | Outpatient (BNVA) | payer MEDICARE, OTHER, SELFPAY | PROVIDERS: PCP Family Medicine; Visit Provider Family Medicine | DX: Z98.890 Other specified postprocedural states (principal); Z79.01 Long term (current) use of anticoagulants | CPT/HCPCS: 85610 ==

== ENCOUNTER → 2023-05-15 10:41 | Outpatient (BNVA) | payer MEDICARE, OTHER, SELFPAY | PROVIDERS: PCP Family Medicine; Visit Provider Family Medicine | DX: I26.99 Other pulmonary embolism without acute cor pulmonale (principal); E78.5 Hyperlipidemia, unspecified; E55.9 Vitamin D deficiency, unspecified; E11.9 Type 2 diabetes mellitus without complications; I10 Essential (primary) hypertension | CPT/HCPCS: 80053; 80061; 82306; 83036; 84443; 85025; 85610 ==

== ENCOUNTER → 2023-06-17 10:00 | Outpatient (BNVA) | payer MEDICARE, OTHER, SELFPAY | PROVIDERS: PCP Family Medicine; Visit Provider Family Medicine | DX: I26.99 Other pulmonary embolism without acute cor pulmonale (principal) | CPT/HCPCS: 85610 ==

== ENCOUNTER → 2023-07-28 16:12 | Outpatient (BNVA) | payer MEDICARE, OTHER, SELFPAY | PROVIDERS: PCP Family Medicine; Visit Provider Family Medicine | DX: Z98.890 Other specified postprocedural states (principal); Z79.01 Long term (current) use of anticoagulants | CPT/HCPCS: 85610 ==

== ENCOUNTER 2023-08-04 11:03 | Observation (INO) | payer MEDICARE, OTHER, SELFPAY ==
[2023-07-30 11:21] LABS: Add Urine Microscopic? NO; Charge for UA Resulting for Rev
[2023-07-30 11:23] LABS: Bilirubin Urine Neg (Negative); Blood Urine Neg (Negative); Glucose Urine UA Norm (Normal); Ketones Urine Negative (Negative); Leukocyte Esterase Urine Negative (Negative); Nitrate Urine Negative (Negative); Protein Urine Neg (Negative); Urine Appearance Clear (CLEAR); Urine Color Yellow (Yellow); Urobilinogen Urine Norm (Negative); pH Urine 6 (5-7)
[2023-07-30 11:38] LABS: Basophils # 0.1 10^3/uL (0.0-0.1); Basophils % 0.8 %; Eosinophils # 0.2 10^3/uL (0.0-0.8); Eosinophils % 2.5 %; Hematocrit 42.6 % (36-47); Lymphocytes # 1.7 10^3/uL (0.8-4.8); Lymphocytes % 28.6 %; Mean Corpuscular HGB Conc 33.1 g/dL (30-55); Mean Corpuscular Volume 87.5 fl (85-98); Mean Platelet Volume 10.2 fL (7.4-10.4); Monocytes # 0.4 10^3/uL (0.2-0.9); Monocytes % 6.6 %; Neutrophils % 61.2 %; Nucleated Red Blood Cells % 0 %; Platelet Count 226 10^3/cmm (157-399); Red Blood Count 4.87 10^6/uL (3.85-5.65); Red Cell Distribution Width 13.2 % (12.1-15.1)
[2023-07-30 11:53] LABS: INR 1.47 (0.8-1.2)
[2023-07-30 12:01] LABS: Alanine Aminotransferase 19 U/L (0-33); Albumin Level 4.3 g/dL (3.5-5.2); Alkaline Phosphatase 109 U/L (35-105); Aspartate Amino Transferase 26 U/L (0-32); Blood Urea Nitrogen 18 mg/dL (8-23); Calcium 11.1 mg/dL (8.5-10.5); Carbon Dioxide 29 mmol/L (22-29); Chloride 99 mmol/L (98-107); Globulin 2.7 g/dL (1.3-4.6); Glucose 102 mg/dL (65-115); Osmolality Calculated 284 mOsm/kg (285-295); Sodium 136 mmol/L (136-145); Total Bilirubin 0.6 mg/dL (0.15-1.2)
[2023-07-30 12:11] LABS: Anion Gap 12.3 (5-19); Potassium 4.3 mmol/L (3.5-5.1)
[2023-08-04] VITALS (17 sets, daily range): BP systolic 88–157; BP diastolic 53–81; PULSE 58–94; RESP 14–18; TEMP 36.3–36.6; O2SAT 91–100; BMI 14.0; BMI 32.0
--- NOTE | 2023-08-04 08:21 | ECG_ITS ---
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 Measurements Intervals [place] Rate: 63 P: 66 WI: 173 QRS: -7 QRSD: 91 T: 51 QT: 419 QTc: 430 Interpretive Statements SINUS RHYTHM LOW QRS VOLTAGE IN PRECORDIAL LEADS [QRS DEFLECTION < 1.0 mV IN CHEST LEADS] ANTEROSEPTAL MYOCARDIAL INFARCTION , OF INDETERMINATE AGE [40+ ms Q WAVE IN V1-V4] Compared to ECG 10/20/2016 15:09:46 Low QRS voltage now present Myocardial infarct finding now present Electronically Signed On 08-04-2023 23:03:04 CDT by Kathi Epperson M.D. [email or web address] [id number]
[2023-08-04] MEDS: enoxaparin 40 mg/0.4 mL Syringe SUBCUT (09:11)
[2023-08-04] MEDS: sodium chloride 0.9% 1,000 ML 30 ML IV (09:12)
[2023-08-04] MEDS: ceFAZolin 2,000 MG in sodium chloride 0.9% (plus) 50 ML 100 MG IV (09:38)
--- NOTE | 2023-08-04 09:45 | W.PM.OPSUD ---
Surgery/Procedure H&P Update DATE OF PROCEDURE: August 04, 2023 DATE H&P PERFORMED: 07/27/23 H&P UPDATE INFORMATION: I have reviewed H&P completed within last 30 days, I have examined patient prior to procedure and No changes to prior documentation PREOP DIAGNOSIS: Mixed urinary incontinence PLANNED PROCEDURE: Operation Date: 08/04/23 10:00 Proposed Procedures p Single incision midurethral sling 34673(Not Applicable) - Tiago Rosales MD
[2023-08-04] MEDS: lidocaine-epi 2% PF 1:200,000 20 mL SDV XX (10:26)
--- NOTE | 2023-08-04 10:53 | PM.OP ---
Operative Report Date of procedure: August 04, 2023 Pre-op diagnosis: Mixed urinary incontinence Post-op diagnosis: same Post-op diagnosis: Rectocele stage II Procedure done: Mid urethral sling Implants: Coloplast Altis sling Surgeon: Tiago Rosales MD Estimated blood loss (mL): 80 IV fluids (mL): 600 Urine output (mL): 200 Complications: None Findings: Rectocele Procedure: After obtaining informed consent, the patient was taken to the operating room and placed in the supine position, given general anesthesia, and prepped and draped in sterile fashion. The abdomen, vulva and vagina were prepped and draped in a sterile manner. A time out procedure was performed. The anterior vaginal mucosa beneath the midurethra was infiltrated with 2% lidocaine with epinephrine. A vertical midline incision was made beneath the midurethra, nearly 1.5 cm length. Careful submucosal dissection was performed bilaterally up to the interior portion of the inferior pubic ramus. The insertion of adductor longus tendon on the patient?s pubic ramus was identified as reference land johnny. Palpated the notch along the internal edge of ischiopubic ramus where the adductor longus tendon and the inferior pubic ramus meet. The Altis single incision sling (SIS) was selected. Then the needle of the SIS inserted aiming at the location of this notch. One of the integrated self-fixating tips place onto the needle by sliding it over the end of the needle. The needle/sling assembly was inserted toward the location of identified reference notch making sure that the flat of the handle is perpendicular to the desired path. The needle was tracked along the posterior surface of the ischiopubic ramus until the midline johnny on the mesh is approximately at the midline position under the urethra. The needle was removed and the same was repeated on the contralateral side until the appropriate sling tension under the urethra was achieved ensuring that the mesh lays flat. The needle was removed and vaginal incision was closed in a running interlocking fashion with 2-0 Vicryl. Then the Richmond catheter was removed and cystoscope was inserted. The bladder was filled with sterile water. Complete evaluation of the bladder mucosa was performed noting no lacerations, dimpling, tears, bleeding of the mucosa or muscular layers. Both ureteral orifices were identified. Prompt excretion of urine from both ureteral orifices was noted. Cystoscope was withdrawn. The Richmond catheter was replaced. Excellent hemostasis was obtained. A vaginal pack is placed overnight as postoperative support for the vaginal tissues after graft placement and closure of vaginal incisions. Sponge, lap, needle, and instrument counts were correct times three. The patient was taken to the recovery room, awake and in stable condition.
--- NOTE | 2023-08-04 11:25 | ANE.PACU2 ---
Inpatient post-anesthesia follow up: Airway intact: Yes Vital signs: Temperature 97.7 F Pulse Rate 68 Respiratory Rate 16 Blood Pressure 112/67 Pulse Oximetry 96 Oxygen Delivery Me thod Room Air Oxygen Flow Rate 6 Fraction of Inspir ed Oxygen Hydration adequate: Yes Nausea and vomiting: No Pain level: 1 Mental status: Baseline
--- NOTE | 2023-08-04 12:03 | P.ANESASSM_ITS ---
Pre-Anesthetic Assessment Height/Weight: Height 1.6 m Weight 35.834 kg Temp Pulse Resp BP Pulse Ox O2 Del Method O2 Flow Rate 97.7 F 68 16 112/67 96 Room Air 6 08/04/23 11:45 08/04/23 11:45 08/04/23 11:45 08/04/23 11:45 08/04/23 11:45 08/04/23 11:22 08/04/23 11:08 Preop Diagnosis: Mixed urinary incontinence Operation Date: 08/04/23 10:00 Proposed Procedures p Single incision midurethral sling 67579(Not Applicable) - Tiago Rosales MD Familial anesthetic complications: None Was Beta Eugenie taken within 24 hours: N/A Was Clonidine taken within 24 hours: N/A Last intake: Intake Last Liquid Date 08/03/23 Last Liquid Time 23:00 Last Solid Date 08/03/23 Last Solid Time 21:30 Social No alcohol and No tobacco Exam alert, oriented x 3, clear to auscultation bilaterally and regular rate & rhythm Pulmonary Sleep Apnea CV/HEM Hypertension factor V leiden Anesthetic Plan ASA status: 3 Anesthesia: General Risk of > 500 ml blood loss (7ml/kg in children): No Medications/Allergies Home Medications Medication Instructions Recorded Confirmed Last Taken Type clobetasol 0.05 % topical spray 1 spray topical PRN PRN Rash 05/30/19 08/04/23 08/03/23 History potassium 99 mg tablet 198 mg PO DAILY 05/30/19 07/30/23 07/30/23 08:00 History magnesium 200 mg tablet 800 mg PO DAILY 07/18/20 07/30/23 08/03/23 History aspirin 81 mg tablet,delayed 81 mg PO DAILY 12/10/21 07/30/23 07/23/23 History release omega-3 fatty acids [Fish Oil] 1 tab PO DAILY 12/10/21 07/30/23 07/30/23 08:00 History topiramate 50 mg tablet (Topamax) 50 mg PO BID PRN headaches 02/02/23 07/30/23 Unknown History warfarin 2 mg tablet See Rx Instructions .Route 07/14/23 07/30/23 07/31/23 Rx .COMPLEX #60 tabs enoxaparin 80 mg/0.8 mL 80 mg (0.8 mL) SUBCUT Q12H #4.8 mL 07/28/23 08/04/23 08/03/23 Rx subcutaneous syringe (Lovenox) atorvastatin 20 mg tablet 20 mg PO DAILY 07/30/23 07/30/23 08/03/23 History cholecalciferol (vitamin D3) 50 6,000 unit PO DAILY 07/30/23 07/30/23 08/03/23 History mcg (2,000 unit) capsule (Vitamin D3) citalopram 40 mg tablet 40 mg PO DAILY 07/30/23 07/30/23 08/03/23 History irbesartan 150 1 tab PO DAILY 07/30/23 08/04/23 08/03/23 History mg-hydrochlorothiazide 12.5 mg tablet Allergies Allergy/AdvReac Type Severity Reaction Status Date / Time melatonin Allergy Unknown rash Verified 07/30/23 10:16 adhesive tape Allergy PEELS SKIN Verified 07/30/23 10:16 ciprofloxacin [From Cipro] Allergy rash Verified 07/30/23 10:16 Current Medications Generic Name Dose Route Start Last Admin Trade Name Freq PRN Reason Stop Dose Admin Sodium Chloride 1,000 mls @ 30 mls/hr 08/04/23 08:30 08/04/23 09:12 Sodium Chloride 0.9% IV 08/05/23 08:29 30 mls/hr .Q24H DEREK Administration PFSH Anesthesia Medical History Factor 5 Leiden mutation, heterozygous Hammertoe of right foot REPAIRED Rotator cuff tear arthropathy of right shoulder Recurrent falls while walking Mixed stress and urge urinary incontinence Enrolled in chronic care management Colon polyps Post-menopausal Synovial cyst of lumbar spine Urinary incontinence Anxiety History of closed shoulder dislocation Minimal cognitive impairment Morbid obesity with BMI of 40.0-44.9, adult Lumbosacral radiculopathy at L5 Psoriasis Obstructive sleep apnea of adult Venous insufficiency of both lower extremities Pulmonary hypertension Pulmonary embolism Essential hypertension Diabetes type 2, controlled Surgical History History of colonoscopy H/O repair of right rotator cuff History of varicose vein stripping H/O shoulder surgery /2006 Family History Father Diabetes CAD (coronary artery disease) Hyperlipidemia Clotting disorder Factor 5 Stroke Sister Diabetes Hyperlipidemia Brother Hypertension Denies family history of Colon cancer Ovarian cancer Breast cancer Anesthesia complication Bleeding disorder Uterine cancer Thyroid disease Social History Smoking and tobacco/nicotine status: never used tobacco/nicotine Alcohol intake: never Substance/Drug Use: never Adopted: No Caregiver/support person: No Lives independently: No Household members: spouse Marital status: Current occupational status: retired Current gender identity: Female Data Anesthesia 07/30/23 10:55 07/30/23 10:55 Blood Bank 08/04/23 09:20 Blood Type AB Positive Rho(D) Type Rh positive Antibody Screen Negative Cardiac Studies: 2 No Data to Display
[2023-08-04] MEDS: dextrose 5%-lactated ringers 1,000 ML 125 ML IV ×2 (14:27→19:53)
[2023-08-04] MEDS: ketorolac 30 mg/mL INJ IVP ×2 (14:27→19:53)
[2023-08-04] MEDS: warfarin 2 mg Tablet 4 MG PO (16:27)
[2023-08-04] MEDS: HYDROcodone-acetaminophen 5-325 mg Tablet PO (18:39)
[2023-08-04] MEDS: docusate sodium 100 mg Capsule PO (18:39)
[2023-08-04] MEDS: enoxaparin 80 mg/0.8 mL Syringe SUBCUT (19:53)
[2023-08-05] VITALS: BP 90/53; PULSE 54; RESP 20; TEMP 36.4; O2SAT 91
[2023-08-05] MEDS: dextrose 5%-lactated ringers 1,000 ML 125 ML IV (02:57)
[2023-08-05] MEDS: ketorolac 30 mg/mL INJ IVP ×2 (02:57→08:10)
[2023-08-05 04:53] LABS: Mean Corpuscular HGB Conc 31.7 g/dL (30-55); Mean Corpuscular Hemoglobin 28.9 pg (27-33); Mean Corpuscular Volume 91.1 fl (85-98); Mean Platelet Volume 9.5 fL (7.4-10.4); Platelet Count 154 10^3/cmm (157-399); Red Blood Count 3.84 10^6/uL (3.85-5.65); Red Cell Distribution Width 13.3 % (12.1-15.1); White Blood Count 5.29 10^3/uL (3.29-11.43)
[2023-08-05 05:28] LABS: INR 1.04 (0.8-1.2)
--- NOTE | 2023-08-05 06:26 | PC.NURSE ---
[place] catheter removed with catheter intact. Patient educated to notify nurse when she voids so that a post-void bladder scan can be completed. Vaginal packing removed. Moderate amount of blood noted to vaginal packing and small amount of blood noted to andrea-pad.
[2023-08-05 08:10] VITALS: BP 92/57; PULSE 66; RESP 18; TEMP 36.8; O2SAT 96
[2023-08-05] MEDS: magnesium oxide 400 mg tablet 800 MG PO (08:10)
[2023-08-05] MEDS: docusate sodium 100 mg Capsule PO (08:13)
[2023-08-05] MEDS: omega-3 fatty acids 1,000 mg Capsule 1000 MG PO (08:13)
[2023-08-05] MEDS: aspirin 81 mg EC Tablet PO (08:13)
[2023-08-05] MEDS: atorvastatin 40 mg Tablet PO (08:14)
[2023-08-05] MEDS: cholecalciferol (vitamin D3) 5,000 unit Tablet 5000 UNIT PO (08:14)
[2023-08-05] MEDS: citalopram 20 mg Tablet 40 MG PO (08:14)
--- NOTE | 2023-08-05 08:42 | PM.OBGYDC ---
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 Romero 67-year-old female G0, P0 with a history of mixed urinary incontinence. She was admitted for planned mid urethral sling. The procedure was performed without complication. Overnight observation was uneventful. Tolerating diet well. Ambulating without difficulty. She is afebrile and hemodynamically stable postoperative day 1. Tolerating diet well. Ambulating without difficulty. She was counseled regarding pelvic rest for 6 weeks (no sex, no tampons, no vaginal douches). Return to the emergency room if any fever, increased bleeding or pain. Physical Exam Narrative: GA: Alert and oriented ?3. HEENT: WNL. Heart: Regular rate and rhythm. Lungs: Clear to auscultation bilaterally. Abdomen: Bowel sounds present, nontender SAND TECHNICIAN: Spotting bleeding. Extremities: No edema, no cyanosis, no calves pain. Urinary Catheter Management: [place]: Cath Placed During This Visit: yes Urinary Catheter Date of Insertion: 08/04/23 Urinary Catheter Time of Insertion: 10:19 History History History 0 Term 0 Miscarriages/Ectopic Living Children Discharge Data Studies Completed and Pending Laboratory Results WBC 5.29 10^3/uL (3.29-11.43) 08/05/23 04:44 RBC 3.84 10^6/uL (3.85-5.65) L 08/05/23 04:44 Hgb 11.10 g/dL (11.27-16.99) L 08/05/23 04:44 Hct 35.0 % (36-47) L 08/05/23 04:44 MCV 91.1 fl (85-98) 08/05/23 04:44 MCH 28.9 pg (27-33) 08/05/23 04:44 MCHC 31.7 g/dL (30-55) 08/05/23 04:44 RDW 13.3 % (12.1-15.1) 08/05/23 04:44 Plt Count 154 10^3/cmm (157-399) L 08/05/23 04:44 MPV 9.5 fL (7.4-10.4) 08/05/23 04:44 Neut % (Auto) 61.2 % 07/30/23 10:55 Lymph % (Auto) 28.6 % 07/30/23 10:55 [place] % (Auto) 6.6 % 07/30/23 10:55 Eos % (Auto) 2.5 % 07/30/23 10:55 Baso % (Auto) 0.8 % 07/30/23 10:55 Neut # (Auto) 3.60 10^3/uL (1.8-7.7) 07/30/23 10:55 Lymph # (Auto) 1.7 10^3/uL (0.8-4.8) 07/30/23 10:55 [place] # (Auto) 0.4 10^3/uL (0.2-0.9) 07/30/23 10:55 Eos # (Auto) 0.2 10^3/uL (0.0-0.8) 07/30/23 10:55 Baso # (Auto) 0.1 10^3/uL (0.0-0.1) 07/30/23 10:55 Nucleated RBC % (auto) 0 % 07/30/23 10:55 Nucleated RBCs # 0.0 /100WBC 07/30/23 10:55 PT 13.90 SECONDS (12.1-14.9) 08/05/23 04:44 INR 1.04 (0.8-1.2) 08/05/23 04:44 Sodium 136 mmol/L (136-145) 07/30/23 10:55 Potassium 4.3 mmol/L (3.5-5.1) 07/30/23 10:55 Chloride 99 mmol/L (98-107) 07/30/23 10:55 Carbon Dioxide 29 mmol/L (22-29) 07/30/23 10:55 Anion Gap 12.3 (5-19) 07/30/23 10:55 BUN 18 mg/dL (8-23) 07/30/23 10:55 Creatinine 0.7 mg/dL (0.5-0.9) 07/30/23 10:55 GFR Calculation 83.0 mL/min (90-130) L 07/30/23 10:55 Glucose 102 mg/dL (65-115) 07/30/23 10:55 Calculated Osmolality 284 mOsm/kg (285-295) L 07/30/23 10:55 Calcium 11.1 mg/dL (8.5-10.5) H 07/30/23 10:55 Total Bilirubin 0.6 mg/dL (0.15-1.2) 07/30/23 10:55 AST 26 U/L (0-32) 07/30/23 10:55 ALT 19 U/L (0-33) 07/30/23 10:55 Alkaline Phosphatase 109 U/L (35-105) H 07/30/23 10:55 Total Protein 7.0 g/dL (6.6-8.7) 07/30/23 10:55 Albumin 4.3 g/dL (3.5-5.2) 07/30/23 10:55 Globulin 2.7 g/dL (1.3-4.6) 07/30/23 10:55 Urine Color Yellow (Yellow) 07/30/23 10:50 Urine Appearance Clear (CLEAR) 07/30/23 10:50 Urine pH 6 (5-7) 07/30/23 10:50 Ur Specific [place] 1.020 (1.005-1.030) 07/30/23 10:50 Urine Protein Neg (Negative) 07/30/23 10:50 Urine Glucose (UA) Norm (Normal) 07/30/23 10:50 Urine Ketones Negative (Negative) 07/30/23 10:50 Urine Blood Neg (Negative) 07/30/23 10:50 Urine Nitrate Negative (Negative) 07/30/23 10:50 Urine Bilirubin Neg (Negative) 07/30/23 10:50 Urine Urobilinogen Norm mg/dL (Negative) 07/30/23 10:50 Ur Leukocyte Esterase Negative (Negative) 07/30/23 10:50 Blood Type AB Positive 08/04/23 09:20 Rho(D) Type Rh positive 08/04/23 09:20 Antibody Screen Negative 08/04/23 09:20 Vitals Last Vital Signs Temp 98.3 F 08/05/23 08:10 Pulse 66 08/05/23 08:10 Resp 18 08/05/23 08:10 BP 92/57 08/05/23 08:10 Pulse Ox 96 08/05/23 08:10 O2 Del Method Room Air 08/05/23 08:10 O2 Flow Rate 1 08/04/23 15:09 Results Labs OB ([facility]): Blood Type AB Positive 08/04/23 Antibody Screen Negative 08/04/23 Hct 35.0 % (36-47) L 08/05/23 Hgb 11.10 g/dL (11.27-16.99) L 08/05/23 Rho(D) Type Rh positive 08/04/23 Plt Count 154 10^3/cmm (157-399) L 08/05/23 TSH 2.13 uIU/mL (0.27-4.20) 05/15/23 Hemoglobin A1c 5.9 % (4.0-6.0) 05/15/23 Pap Smear Interpret See note 01/23/20 Discharge Plan Discharge Patient Disposition: Home Condition: Stable Prescriptions: New acetaminophen 325 mg capsule 325 mg PO Q4H PRN (Reason: fever or pain) Qty: 60 0RF ibuprofen 800 mg tablet 800 mg PO TID PRN (Reason: pain) Qty: 60 0RF No Action clobetasol 0.05 % spray,non-aerosol 1 spray TOPICAL PRN PRN (Reason: Rash) potassium 99 mg tablet 198 mg PO DAILY topiramate [Topamax] 50 mg tablet 50 mg PO BID PRN (Reason: headaches) aspirin 81 mg tablet,delayed release (DR/EC) 81 mg PO DAILY omega-3 fatty acids [Fish Oil] 1 tab PO DAILY warfarin 2 mg tablet See Rx Instructions .ROUTE .COMPLEX Qty: 60 2RF Dose Instruction: TAKE TWO TABLETS BY MOUTH DAILY OR USE DIRECTED Rx Instructions: TAKE TWO TABLETS BY MOUTH DAILY OR USE DIRECTED enoxaparin [Lovenox] 80 mg/0.8 mL syringe 80 mg SUBCUT Q12H Qty: 4.8 1RF Rx Instructions: stop warfarin 3days prior to surgery and startlovenox. Surgeon will order to restart warfarin magnesium 200 mg Tablet 800 mg PO DAILY atorvastatin 20 mg tablet 20 mg PO DAILY Rx Instructions: TAKE ONE TABLET BY MOUTH DAILY citalopram 40 mg tablet 40 mg PO DAILY Rx Instructions: TAKE ONE TABLET BY MOUTH EVERY DAY irbesartan-hydrochlorothiazide 150-12.5 mg tablet 1 tab PO DAILY Rx Instructions: TAKE ONE TABLET BY MOUTH DAILY cholecalciferol (vitamin D3) [Vitamin D3] 50 mcg (2,000 unit) capsule 6,000 unit PO DAILY Rx Instructions: TAKE THREE CAPSULES BY MOUTH DAILY Discharge Orders: Discharge Order (Routine); Ordered 08/05/23 Ordered By: Tiago Rosales Referrals: Tiago Rosales MD [Physician] - 2 weeks Discharge Diet: Usual diet Discharge Activity: Limit activity as instructed Patient Instructions: Bladder Sling for Women (GEN), Opioid Safety Activity Restrictions/Additional Instructions: 1. Please call [facility] on next working day to make your post-operative appointment in 2 weeks. 2. Please stay home until you come back to the clinic on first post-hospatilization check up. 3. Please follow instructions on your medications CAREFULLY. 4. If you have abdominal incision, do not cover it unless dressing is necessary because of drainage. OK to shower, but avoid bath. Leave steri-strips until they fall off. If they are still on one week after surgery, you may remove them. 5. If you had vaginal surgery or vaginal repair, Dr. Rosales may instruct you to take SITZ bath. 6. Yellow, blood tinged odorous vaginal discharge is usually normal after hysterectomy or vaginal surgeries. 7. No SEXUAL INTERCOURSE, tampons, or douches until you are completely released from the post-operative care. 8. Avoid constipation by eating right and maybe using some Metamucil or Milk of Magnesia. 9. All prescription refills are given during the working hours. Please do no wait till it runs out. Call the clinic at [phone] before your medication runs out. The clinic will get in touch with your doctor to prescribe medications if necessary. 10. Please remain within 40 mile radius from our hospital because emergencies do happen now and then during the post-operative period. 11. If you have stairs at home, take one step at a time slowly and minimize the number of trips. It helps to stay in one floor for the next few days. No lifting except what you can lift by one hand until you are released from the post-operative care. 12. Driving is discouraged until you are well healed. It may be 3-4 weeks before you feel strong enough to drive. You should be able to turn and look through the rear window without pain and you should be able to push the brake pedal very hard without pain before you drive. No fast rules, but SAFETY should be your primary concern. DO NOT drive if you are on sedating medications such as narcotics. 13. Call the clinic (during working hours) to make urgent appointment or go to the Emergency room, if any of the following occurs: i. Vaginal bleeding becomes heavy, more than a period. ii. Incision becomes red and sore, or drains pus. iii. Your TEMPERATURE is over 100.4F or you have chill. iv. IV site becomes red and swollen (a little ``knot?? is usually OK) v. Persistent nausea and vomiting vi. Persistent constipation or diarrhea vii. Rash or allergic reaction to medications. 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
--- NOTE | 2023-08-05 09:00 | PC.CHAP ---
Pastoral Care Encounter/Spiritual Assessment Type of Contact [] Declined neuropsychiatric aide visit [] Patient/Family/Request visit [] Outpatient visit [] Follow-up visit [] Physician referral [] Code/Alert [x] Routine visit [] Staff referral [] Actively dying [] Patient sleeping [x] Family support [] [] Out of room [] Palliative care [] [] Receiving care in room [] Pre-surgical visit [] Trauma [] Long length of stay [] ICU visit [] Other: Relational/Emotional Strength [x] Patient feels connected with others/family/visitors/staff [] Distress [] Loneliness/isolation [] Abandonment Spirituality of Patient [x] Person of Eli [] Attends [employer] of their Eli [x] Believes in Prayer [] Reads Bible or Lutheran materials [] There are Spiritual issues to be addressed Senior Program Analyst Interventions [x] Prayer [x] Active listening [] Non-anxious presence [x] Spiritual/emotional support [] Crisis/trauma care [] Spiritual counseling [] Bereavement support [] Provided bereavement packet [] Provided Bible/devotional materials [] Provided toy/stuffed animal, coloring book to patient or family member [] Provided Communion [] Anointing/[place] [] Salvation [x] Completed spiritual assessment [] Other: Impact on Illness or Injury [] Angry [] Fearful [] Anxious [] Often cries [] Exhaustion [] Unable to work [] Unable to attend mormon [] Unable to walk/stand [] Unable to read [] Unable to drive [] Unable to eat/drink [] Unable to sleep [] Unable to be with family [] Patient intubated [] Other: Summary Time spent with patient 5 min
--- NOTE | 2023-08-05 10:45 | PC.NURSE ---
urine and bladder scan x3 pt urinated 150 and post void bladder scan showed 42ml, pt voided 100ml and post void bladder scan showed 0ml, pt voided another 100ml and post void bladder scan showed 0ml.
[2023-08-05 11:19] VITALS: BP 92/57; PULSE 66; RESP 18; TEMP 36.8; O2SAT 96
== END 2023-08-05 11:21 | disposition home or self-care (01) ==
LOC: MEDSURG 11:09
PROVIDERS: Admitting Provider Obstetrics & Gynecology; PCP Family Medicine; Visit Provider Obstetrics & Gynecology
PROC: (CPT 57288; principal; 2023-08-04 09:50)
DX: N39.46 Mixed incontinence (principal); N81.6 Rectocele
CPT/HCPCS: 57288; 36415; 51798; 80053; 81003; 85025; 85027; 85610; 86850; 86900; 93005; 96372; C1713; G0378; J0690; J1650; J1885; J2405; J2704; J3010; J7030; J7121

== ENCOUNTER → 2023-08-07 10:56 | Outpatient (BNVA) | payer MEDICARE, OTHER, SELFPAY | PROVIDERS: PCP Family Medicine; Visit Provider Family Medicine | DX: Z98.890 Other specified postprocedural states (principal) | CPT/HCPCS: 85610 ==

== ENCOUNTER → 2023-08-13 14:03 | Outpatient (BNVA) | payer MEDICARE, OTHER, SELFPAY | PROVIDERS: PCP Family Medicine; Visit Provider Family Medicine | DX: Z98.890 Other specified postprocedural states (principal) | CPT/HCPCS: 85610 ==

== ENCOUNTER → 2023-08-21 10:29 | Outpatient (BNVA) | payer MEDICARE, OTHER, SELFPAY | PROVIDERS: PCP Family Medicine; Visit Provider Family Medicine | DX: Z98.890 Other specified postprocedural states (principal); Z79.899 Other long term (current) drug therapy | CPT/HCPCS: 85610 ==

== ENCOUNTER → 2023-09-16 11:06 | Outpatient (BNVA) | payer MEDICARE, OTHER, SELFPAY | PROVIDERS: PCP Family Medicine; Visit Provider Family Medicine | DX: Z79.01 Long term (current) use of anticoagulants (principal) | CPT/HCPCS: 85610 ==

== ENCOUNTER 2023-10-23 14:02 | Outpatient (CLI) | payer MEDICARE, OTHER, SELFPAY ==
--- NOTE | 2023-10-23 14:05 | MM_ITS ---
WS: [id number] BILATERAL 3D TOMOSYNTHESIS DIGITAL SCREENING MAMMOGRAM WITH CAD CLINICAL INFORMATION: SCREENING HISTORY: Screening mammogram. No current complaints. COMPARISON: 2020 TECHNIQUE: Bilateral CC and MLO views. FINDINGS: Fatty-replaced breasts bilaterally. No suspicious focal mass, asymmetry, calcifications, or oim architect ural distortion. No evidence of malignancy. Incidental punctate calcifications. MM/[place] [id number] IMPRESSION: BI-RADS: 2-Benign FOLLOW UP: 1 Year Follow-up Recommend return to annual screening mammography.
== END 2023-10-23 14:03 | disposition home or self-care (01) ==
LOC: RAD 14:03
PROVIDERS: PCP Family Medicine; Visit Provider Obstetrics & Gynecology
DX: Z12.31 Encounter for screening mammogram for malignant neoplasm of breast (principal); R92.313 Mammographic fatty tissue density, bilateral breasts; R92.1 Mammographic calcification found on diagnostic imaging of breast
CPT/HCPCS: 77063; 77067

== ENCOUNTER 2023-11-20 17:50 | Emergency (ER) | payer MEDICARE, OTHER, SELFPAY ==
[2023-11-20 17:54] VITALS: BP 167/90; PULSE 66; RESP 16; TEMP 36.7; O2SAT 99; BMI 32.5
--- NOTE | 2023-11-20 17:57 | XRR_ITS ---
PROCEDURE INFORMATION: Exam: XR Right Shoulder Exam date and time: 11/20/2023 6:18 PM Age: 68 years old Clinical indication: Injury or trauma; Fall; Fracture, traumatic injury; Closed fracture; Humerus; Right; Prior surgery; Surgery date: 6+ months; Surgery type: R shoulder repair; Additional info: Fall/pain/hx of fracture and dislocation TECHNIQUE: Imaging protocol: Radiologic exam of the right shoulder. Views: 2 or more views. 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 Fracture of the proximal right humerus along the shaft of the right shoulder arthroplasty. Soft tissues: Normal. XR/XR shoulder RT min 2V* [id number] IMPRESSION: Fracture of the proximal right humerus along the shaft of the reverse ball and socket right shoulder arthroplasty.
--- NOTE | 2023-11-20 17:57 | CTR_ITS ---
PROCEDURE INFORMATION: Exam: CT Head Without Contrast Exam date and time: 11/20/2023 6:47 PM Age: 68 years old Clinical indication: Injury or trauma; Blunt trauma (contusions or hematomas); Patient HX: EMS arrival for fall. Patient fell from standing onto deck with headstrike. C/O diffuse head pain. Anticoagulated. ; Additional info: Fall/hit head/on blood thinner TECHNIQUE: Imaging protocol: Computed tomography of the head without contrast. Radiation optimization: All CT scans at this facility use at least one of these dose optimization techniques: automated exposure control; mA and/or kV adjustment per patient size (includes targeted exams where dose is matched to clinical indication); or iterative reconstruction. COMPARISON: CT head wo con* [id number] 03/19/2019 1:44 PM RADIATION DOSE METRICS: Total DLP (mGy-cm): 1169.88 FINDINGS: Brain: Subcortical and periventricular white matter changes consistent with small-vessel ischemic disease in the appropriate clinical setting. Small-vessel ischemic disease. No acute intracranial abnormality. Cerebral ventricles: No ventriculomegaly. Paranasal sinuses: Visualized sinuses are unremarkable. No fluid levels. Mastoid air cells: Visualized mastoid air cells are well aerated. Bones: Unremarkable. No acute fracture. Soft tissues: Unremarkable. CT/CT head wo con* [id number] IMPRESSION: 1. No acute intracranial abnormality. 2. Small-vessel ischemic disease.
--- NOTE | 2023-11-20 17:57 | CTR_ITS ---
PROCEDURE INFORMATION: Exam: CT Cervical Spine Without Contrast Exam date and time: 11/20/2023 6:50 PM Age: 68 years old Clinical indication: Injury or trauma; Blunt trauma; Patient HX: EMS arrival for fall. Patient fell from standing onto deck with headstrike. C/O diffuse head pain. Anticoagulated. ; Additional info: Fall/hit head/on blood thinner TECHNIQUE: Imaging protocol: Computed tomography of the cervical spine without contrast. Radiation optimization: All CT scans at this facility use at least one of these dose optimization techniques: automated exposure control; mA and/or kV adjustment per patient size (includes targeted exams where dose is matched to clinical indication); or iterative reconstruction. COMPARISON: CR XR cervical spine 3V* [id number] 05/21/2018 11:52 AM RADIATION DOSE METRICS: Total DLP (mGy-cm): 696.46 FINDINGS: Bones: Severe degenerative disc disease at C5-C6 and C6-C7. Fracture of the inferior articular facet C7 on the right (series 17, image 36). Lungs: Lung apices are normal. Soft tissues: Unremarkable. CT/CT cervical spin wo con* [id number] IMPRESSION: Fracture of the inferior articular facet of C7 on the right (series 17, image 36).
--- NOTE | 2023-11-20 17:57 | XRR_ITS ---
PROCEDURE INFORMATION: Exam: XR Right Humerus Exam date and time: 11/20/2023 6:18 PM Age: 68 years old Clinical indication: Injury or trauma; Fall; Fracture, traumatic injury; Closed fracture; Humerus; Right; Prior surgery; Surgery date: 6+ months; Surgery type: R shoulder replacement; Additional info: Fall/pain RT shoulder TECHNIQUE: Imaging protocol: Radiologic exam of the right humerus. Views: 2 or more views. 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 Fracture of the proximal right humerus along the shaft of the right shoulder arthroplasty. Soft tissues: Normal. 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 Fracture of the proximal right humerus along the shaft of the right shoulder arthroplasty.
--- NOTE | 2023-11-20 17:59 | ED_ITS ---
HPI - Extremity Problem General: Chief complaint: Extremity Injury, Upper Stated complaint: fall Time Seen by Provider: 11/20/23 17:52 Source: patient Mode of arrival: EMS Limitations: no limitations History of Present Illness: Patient is a 68-year-old female presenting to the emergency department by ambulance due to a fall prior to arrival. Fell directly onto her right upper extremity while cleaning pool deck, reports history of dislocation and fracture to that shoulder, and lastly had a shoulder revision. She is reporting that she also hit her head, and has been feeling nauseous. EMS gave Dilaudid. She did not lose consciousness and is not reporting any neck pain at this time. However, she is on Coumadin. She has no distal neurovascular symptoms to report, can still move her right upper extremity though with significant pain. Vitals are stable on arrival other than slightly elevated blood pressure likely secondary to pain. No chest pain, shortness of breath, lightheadedness, or symptoms prior to the fall. MD Complaint: extremity pain and joint pain Onset (ago): minute(s) Pain Consistency: constant Location: right and upper extremity Severity scale (1-10): 10 Radiation: distal Exacerbating factors: range of motion Associated symptoms: Deny chest pain, fever(s) or rash Related Data Home Medications Medication Instructions Recorded Confirmed clobetasol 0.05 % topical spray 1 spray topical PRN PRN Rash 05/30/19 11/16/23 potassium 99 mg tablet 198 mg PO DAILY 05/30/19 11/16/23 magnesium 200 mg tablet 800 mg PO DAILY 07/18/20 11/16/23 aspirin 81 mg tablet,delayed 81 mg PO DAILY 12/10/21 11/16/23 release topiramate 50 mg tablet (Topamax) 50 mg PO BID PRN headaches 02/02/23 11/16/23 cholecalciferol (vitamin D3) 50 6,000 unit PO DAILY 07/30/23 11/16/23 mcg (2,000 unit) capsule (Vitamin D3) citalopram 40 mg tablet 40 mg PO DAILY 07/30/23 11/16/23 Previous Rx's Medication Instructions Recorded acetaminophen 325 mg capsule 325 mg PO Q4H PRN fever or pain 08/05/23 #60 caps atorvastatin 40 mg tablet 40 mg PO DAILY 08/05/23 docusate sodium 100 mg capsule 100 mg PO BID 08/05/23 ibuprofen 800 mg tablet 800 mg PO TID PRN pain #60 tabs 08/05/23 losartan 50 mg tablet 50 mg PO DAILY 08/05/23 omega-3 fatty acids 1,000 mg 1,000 mg PO DAILY 08/05/23 capsule atorvastatin 20 mg tablet See Rx Instructions .Route 08/12/23 .COMPLEX #90 tabs warfarin 2 mg tablet See Rx Instructions .Route 09/17/23 .COMPLEX #75 tabs irbesartan 150 See Rx Instructions .Route 09/28/23 mg-hydrochlorothiazide 12.5 mg .COMPLEX #30 tabs tablet oxybutynin chloride 5 mg 5 mg PO TID Mixed incontinence #90 10/15/23 tablet,extended release 24 hr tabs mirabegron 25 mg tablet,extended 25 mg PO DAILY #30 tabs 11/16/23 release 24 hr hydrocodone 7.5 mg-acetaminophen 1 tab PO Q8H PRN pain #20 tabs 11/20/23 325 mg tablet Allergies Allergy/AdvReac Type Severity Reaction Status Date / Time melatonin Allergy Unknown rash Verified 09/18/23 17:16 adhesive tape Allergy PEELS SKIN Verified 09/18/23 17:16 ciprofloxacin [From Cipro] Allergy rash Verified 09/18/23 17:16 Review of Systems General: Reports: 10 or more systems reviewed and unremarkable except in HPI and below Const: Reports: other (Fall/hit head); Denies: fever(s) or chills Eyes: Denies: change in vision Card: Denies: chest pain Resp: Denies: dyspnea or productive cough GI: Denies: abdominal pain, nausea, vomiting or diarrhea : Denies: flank pain Musc: Reports: extremity pain (Right upper extremity) and joint pain (Right shoulder); Denies: neck pain, back pain, extremity swelling, joint swelling, joint redness, joint warmth, limited range of motion or muscle weakness Skin/Breast: Denies: rash Neuro: Denies: headache(s), numbness in extremities or weakness in extremities PFSH ED PFSH: Medical History Factor 5 Leiden mutation, heterozygous Hammertoe of right foot REPAIRED Rotator cuff tear arthropathy of right shoulder Recurrent falls while walking Mixed stress and urge urinary incontinence Enrolled in chronic care management Colon polyps Post-menopausal Synovial cyst of lumbar spine Urinary incontinence Anxiety History of closed shoulder dislocation Minimal cognitive impairment Morbid obesity with BMI of 40.0-44.9, adult Lumbosacral radiculopathy at L5 Psoriasis Obstructive sleep apnea of adult Venous insufficiency of both lower extremities Pulmonary hypertension Pulmonary embolism Essential hypertension Diabetes type 2, controlled Surgical History History of colonoscopy H/O repair of right rotator cuff History of varicose vein stripping H/O shoulder surgery Family History Father Diabetes CAD (coronary artery disease) Hyperlipidemia Clotting disorder Factor 5 Stroke Sister Diabetes Hyperlipidemia Brother Hypertension Denies family history of Colon cancer Ovarian cancer Breast cancer Anesthesia complication Bleeding disorder Uterine cancer Thyroid disease Physical Exam Const: COMMON NORMALS: patient oriented x3, no limitations, healthy appearing, alert and well nourished GENERAL APPEARANCE: in distress and anxious HENMT: COMMON NORMALS: normocephalic, atraumatic and Normal external nose present HEAD & SCALP: normal to inspection, normocephalic and atraumatic; no Reardon's sign, no raccoon eyes and no scalp tenderness FACE & SINUS: normal facial exam NOSE: Normal external nose present Eye: COMMON NORMALS: Equal, round and reactive pupils present, EOMs intact bilaterally and conjunctivae normal CONJUNCTIVA: Yes conjunctivae normal PUPIL: Yes Equal, round and reactive pupils present Neck/C-Spine: COMMON NORMALS: full ROM, supple and no meningeal signs GENERAL: Yes normal visual inspection CERVICAL SPINE: Yes cervical ROM normal Chest: COMMONS NORMALS: normal inspection of the chest Resp: COMMON NORMALS: normal respiratory effort, No use of accessory muscles and clear to auscultation bilaterally AUSCULTATION: clear to auscultation bilaterally Cardio: COMMON NORMALS: regular rate and regular rhythm RATE: regular rate RHYTHM: regular rhythm Extremity: COMMON NORMALS: capillary refill normal, no joint enlargement and no clubbing, cyanosis or edema NARRATIVE EXTREMITY EXAM: Right upper extremity is in a sling and swath, does not attempt range of motion from the pain. Distal pulse intact. No coolness to extremity. Can still move her right upper extremity distally. Elbow does not seem to be tender to palpa tion. There is reproducible tenderness to palpation on the anterior shoulder joint which extends distally down to the humerus. Neuro: COMMON NORMALS: patient oriented x3, CN's II-XII intact bilaterally, no focal motor deficits and no sensory deficits noted SENSORIUM/ORIENTATION: Yes alert MENINGEAL SIGNS: Yes no meningeal signs Skin: COMMON NORMALS: no rashes or lesions noted GENERAL SKIN EXAM: no rashes or lesions noted Course Vital Signs: Vital signs: Vital Signs Temperature 98.1 F 11/20/23 17:54 Pulse Rate 65 11/20/23 20:16 Respiratory Rate 18 11/20/23 19:48 Blood Pressure 128/73 11/20/23 20:16 Pulse Oximetry 96 11/20/23 20:16 Oxygen Delivery Me thod Room Air 11/20/23 17:54 MDM - Extremity (Nontraumatic) Medical Decision Making Patient brought in by EMS after falling onto her right arm. She did have a history of fracture/dislocation of the right humerus and right shoulder, respectively. Her last operation was a total shoulder reversal, and states that ever since then her shoulder has been messed up. She did note that she hit her head, is on Coumadin and was feeling nauseous. X-ray of her right upper extremity showed proximal humerus fracture with no dislocation. This picture was reviewed with orthopedist Dr. Rosario, who states that this needs to be seen by either her prior surgeon or someone that we will be able to deal with patient's replacement hardware. Additionally, though the patient did not have any reports of neck pain, there is fracture of the inferior facet of C7, of which Dr. Roasrio states he will see this in the office and she is to be put in a soft cervical collar. Her head CT did not reveal any signs of acute intracranial bleed. Patient was very anxious initially, this was controlled by controlling her pain with morphine. Upon recheck and review of her images, she is feeling more comfortable but states that any movement causes severe pain. Will send home with a prescription for hydrocodone and will give 1 more dose of morphine with Zofran prior to discharge. Strict return precautions are given to this patient, and this case is reviewed with Dr. Grace. Lab Data Radiology Impressions Cervical Spine CT 11/20/23 17:57 IMPRESSION: Fracture of the inferior articular facet of C7 on the right (series 17, image 36). ADDENDUM: 11/20/231922 THIS REPORT CONTAINS FINDINGS THAT MAY BE CRITICAL TO PATIENT CARE. The findings were verbally communicated via telephone conference with LEONARDA De Los Santos at 7:21 PM CDT on 11/20/2023. The findings were acknowledged and understood. Head CT 11/20/23 17:57 IMPRESSION: 1. No acute intracranial abnormality. 2. Small-vessel ischemic disease. 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 Fracture of the proximal right humerus along the shaft of the right shoulder arthroplasty. Shoulder X-Ray 11/20/23 17:57 IMPRESSION: Fracture of the proximal right humerus along the shaft of the reverse ball and socket right shoulder arthroplasty. All radiology interpretation(s) finalized by discharge Discharge Plan Discharge Patient Disposition: Home Clinical Impression: Closed fracture of proximal end of right humerus Qualifiers: Encounter type: initial encounter Fracture morphology: unspecified fracture morphology Qualified Code(s): S42.201A - Unspecified fracture of upper end of right humerus, initial encounter for closed fracture C7 cervical fracture Qualifiers: Encounter type: initial encounter Fracture type: closed Fracture morphology: unspecified fracture morphology Fracture alignment: nondisplaced Qualified Code(s): S12.601A - Unspecified nondisplaced fracture of seventh cervical vertebra, initial encounter for closed fracture Condition: Stable Prescriptions: New hydrocodone-acetaminophen 7.5-325 mg tablet 1 tab PO Q8H PRN (Reason: pain) Qty: 20 0RF No Action clobetasol 0.05 % spray,non-aerosol 1 spray TOPICAL PRN PRN (Reason: Rash) potassium 99 mg tablet 198 mg PO DAILY topiramate [Topamax] 50 mg tablet 50 mg PO BID PRN (Reason: headaches) oxybutynin chloride 5 mg tablet extended release 24hr 5 mg PO TID Qty: 90 3RF Rx Instructions: 5mg x 2 qhs and 5mg x 1 in AM aspirin 81 mg tablet,delayed release (DR/EC) 81 mg PO DAILY mirabegron 25 mg tablet extended release 24 hr 25 mg PO DAILY Qty: 30 0RF atorvastatin 20 mg tablet See Rx Instructions .ROUTE .COMPLEX Qty: 90 0RF Dose Instruction: TAKE ONE TABLET BY MOUTH DAILY Rx Instructions: TAKE ONE TABLET BY MOUTH DAILY warfarin 2 mg tablet See Rx Instructions .ROUTE .COMPLEX Qty: 75 2RF Dose Instruction: TAKE TWO TABLETS BY MOUTH DAILY OR USE DIRECTED Rx Instructions: TAKE TWO TABLETS(4 mg) BY MOUTH every other day alternate with two and one half tablets (5 mg) every other day irbesartan-hydrochlorothiazide 150-12.5 mg tablet See Rx Instructions .ROUTE .COMPLEX Qty: 30 2RF Dose Instruction: TAKE ONE TABLET BY MOUTH DAILY Rx Instructions: TAKE ONE TABLET BY MOUTH DAILY magnesium 200 mg Tablet 800 mg PO DAILY citalopram 40 mg tablet 40 mg PO DAILY Rx Instructions: TAKE ONE TABLET BY MOUTH EVERY DAY cholecalciferol (vitamin D3) [Vitamin D3] 50 mcg (2,000 unit) capsule 6,000 unit PO DAILY Rx Instructions: TAKE THREE CAPSULES BY MOUTH DAILY ibuprofen 800 mg tablet 800 mg PO TID PRN (Reason: pain) Qty: 60 0RF acetaminophen 325 mg capsule 325 mg PO Q4H PRN (Reason: fever or pain) Qty: 60 0RF losartan 50 mg Tablet 50 mg PO DAILY 0RF atorvastatin 40 mg Tablet 40 mg PO DAILY 0RF omega-3 fatty acids 1,000 mg Capsule 1,000 mg PO DAILY 0RF docusate sodium 100 mg Capsule 100 mg PO BID 0RF Discharge Orders: Discharge ED (Routine); Ordered 11/20/23 Ordered By: Leonarda Almonte Referrals: Mame Yu MD [Primary Care Provider] - Discharge Diet: As Directed Discharge Activity: Limit activity as instructed Patient Instructions: Arm Fracture in Adults (ED), Cervical Fracture (ED) Activity Restrictions/Additional Instructions: Sling as provided for immobilization. Cervical collar until follow-up with orthopedic/spine early next week. Please follow-up with [facility] orthopedics for evaluation of your right arm fracture. Hydrocodone for pain. You may also take ibuprofen. Continue taking your other medications at home as prescribed. Please return if you have any other new or concerning symptoms. Coding Level of Care Code ED Damper Fitter for Angela Garzon
[2023-11-20] MEDS: ondansetron 2 mg/ML SDV 2 mL 4 MG IVP ×2 (18:19→19:47)
[2023-11-20 18:20] VITALS: RESP 18; O2SAT 99
[2023-11-20] MEDS: morphine 4 mg/mL SDV 1 mL IVP ×2 (18:20→19:48)
[2023-11-20 18:28] VITALS: BP 165/93
[2023-11-20 19:35] VITALS: BP 146/82; O2SAT 97
[2023-11-20 19:48] VITALS: RESP 18; O2SAT 97
[2023-11-20 20:16] VITALS: BP 128/73; PULSE 65; O2SAT 96
--- NOTE | 2023-11-23 07:50 | DCPLANNER ---
messaged ortho for er f/u
== END 2023-11-20 20:17 | disposition home or self-care (01) ==
PROVIDERS: Emergency Provider Physician Assistant; PCP Family Medicine
DX: S42.201A Unspecified fracture of upper end of right humerus, initial encounter for closed fracture (principal); S12.601A Unspecified nondisplaced fracture of seventh cervical vertebra, initial encounter for closed fracture; Z79.82 Long term (current) use of aspirin; Z79.01 Long term (current) use of anticoagulants; I10 Essential (primary) hypertension; E11.9 Type 2 diabetes mellitus without complications; W19.XXXA Unspecified fall, initial encounter
CPT/HCPCS: 70450; 72125; 73030; 73060; 96374; 96375; 96376; 99285; J2270; J2405

== ENCOUNTER → 2023-11-26 14:17 | Outpatient (BNVA) | payer MEDICARE, OTHER, SELFPAY | PROVIDERS: PCP Family Medicine; Visit Provider Orthopaedic Surgery | DX: S12.601A Unspecified nondisplaced fracture of seventh cervical vertebra, initial encounter for closed fracture (principal); W19.XXXA Unspecified fall, initial encounter; Y92.016 Swimming-pool in single-family (private) house or garden as the place of occurrence of the external cause | CPT/HCPCS: 72040; 85610; 99204 ==

== ENCOUNTER → 2023-12-03 14:22 | Outpatient (BNVA) | payer MEDICARE, OTHER, SELFPAY | PROVIDERS: PCP Family Medicine; Visit Provider Family Medicine | DX: Z98.890 Other specified postprocedural states (principal) | CPT/HCPCS: 85610 ==

== ENCOUNTER 2023-12-10 14:39 | Emergency (ER) | payer MEDICARE, OTHER, SELFPAY ==
[2023-12-10 14:43] VITALS: BP 142/77; PULSE 67; RESP 16; TEMP 36.7; O2SAT 94
--- NOTE | 2023-12-10 14:54 | USCV_ITS ---
Amna Romero Age: 68 Gender: F : 1955 Exam Date: 12/10/2023 15:27 Ordering Phys: Leslie Gallegos MD Technologist: Exam Location: [facility] [place]ication: Rt arm pain and swelling Rt arm fracture mid humorus PROCEDURES: Venous duplex imaging was performed in only the right upper extremity. The following venous structures were evaluated: internal jugular vein, subclavian vein, axillary vein, and brachial veins. In addition, the basilic vein, cephalic vein, radial vein, and ulnar vein. FINDINGS: No evidence of deep vein thrombosis or superficial thrombophlebitis in the right upper extremity. CONCLUSIONS No evidence of thrombus of the right upper extremity veins. Gaudencio Arriaga MD (Electronically Signed) Final Date: 11 December 2023 15:57 S
[2023-12-10 15:25] LABS: Basophils # 0.1 10^3/uL (0.0-0.1); Basophils % 0.7 %; Eosinophils # 0.2 10^3/uL (0.0-0.8); Eosinophils % 2.8 %; Hematocrit 40.8 % (36-47); Lymphocytes # 1.4 10^3/uL (0.8-4.8); Lymphocytes % 17.2 %; Mean Corpuscular HGB Conc 32.8 g/dL (30-55); Mean Corpuscular Hemoglobin 28.8 pg (27-33); Mean Corpuscular Volume 87.7 fl (85-98); Monocytes # 0.5 10^3/uL (0.2-0.9); Monocytes % 6.1 %; Neutrophils # 6.09 10^3/uL (1.8-7.7); Nucleated Red Blood Cells % 0 %; Platelet Count 346 10^3/cmm (157-399); Red Blood Count 4.65 10^6/uL (3.85-5.65); Red Cell Distribution Width 12.8 % (12.1-15.1); White Blood Count 8.35 10^3/uL (3.29-11.43)
--- NOTE | 2023-12-10 18:10 | ED_ITS ---
HPI - Extremity Problem 2 General: Chief complaint: Extremity Injury, Upper Stated complaint: RIght arm injury - Dr sent for US Time Seen by Provider: 12/10/23 18:08 History of Present Illness: 68-year-old female comes in today for co ncerns of increased swelling to the right upper extremity. Patient has a fracture of the humerus and has had some increased swelling to the lower part of the arm. Pulses are intact. Patient appears nontoxic. Patient reports no difficulty breathing or chest pain. Related Data Home Medications Medication Instructions Recorded Confirmed clobetasol 0.05 % topical spray 1 spray topical PRN PRN Rash 05/30/19 12/10/23 potassium 99 mg tablet 198 mg PO DAILY 05/30/19 12/10/23 magnesium 200 mg tablet 800 mg PO DAILY 07/18/20 12/10/23 aspirin 81 mg tablet,delayed 81 mg PO DAILY 12/10/21 12/10/23 release topiramate 50 mg tablet (Topamax) 50 mg PO BID PRN headaches 02/02/23 12/10/23 citalopram 40 mg tablet 40 mg PO DAILY 07/30/23 12/10/23 Previous Rx's Medication Instructions Recorded acetaminophen 325 mg capsule 325 mg PO Q4H PRN fever or pain 08/05/23 #60 caps atorvastatin 40 mg tablet 40 mg PO DAILY 08/05/23 docusate sodium 100 mg capsule 100 mg PO BID 08/05/23 losartan 50 mg tablet 50 mg PO DAILY 08/05/23 omega-3 fatty acids 1,000 mg 1,000 mg PO DAILY 08/05/23 capsule atorvastatin 20 mg tablet See Rx Instructions .Route 08/12/23 .COMPLEX #90 tabs irbesartan 150 See Rx Instructions .Route 09/28/23 mg-hydrochlorothiazide 12.5 mg .COMPLEX #30 tabs tablet oxybutynin chloride 5 mg 5 mg PO TID Mixed incontinence #90 10/15/23 tablet,extended release 24 hr tabs mirabegron 25 mg tablet,extended 25 mg PO DAILY #30 tabs 11/16/23 release 24 hr warfarin 2 mg tablet See Rx Instructions .Route 11/24/23 .COMPLEX #75 tabs cholecalciferol (vitamin D3) 50 See Rx Instructions .Route 12/04/23 mcg (2,000 unit) capsule (Vitamin .COMPLEX #90 caps D3) Allergies Allergy/AdvReac Type Severity Reaction Status Date / Time melatonin Allergy Unknown rash Verified 12/10/23 14:50 adhesive tape Allergy PEELS SKIN Verified 12/10/23 14:50 ciprofloxacin [From Cipro] Allergy rash Verified 12/10/23 14:50 Review of Systems 2 General: Reports: 10 or more systems reviewed and unremarkable except in HPI and below PFSH ED 2 PFSH: Medical History Factor 5 Leiden mutation, heterozygous Hammertoe of right foot REPAIRED Rotator cuff tear arthropathy of right shoulder Recurrent falls while walking Mixed stress and urge urinary incontinence Enrolled in chronic care management Colon polyps Post-menopausal Synovial cyst of lumbar spine Urinary incontinence Anxiety History of closed shoulder dislocation Minimal cognitive impairment Morbid obesity with BMI of 40.0-44.9, adult Lumbosacral radiculopathy at L5 Psoriasis Obstructive sleep apnea of adult Venous insufficiency of both lower extremities Pulmonary hypertension Pulmonary embolism Essential hypertension Diabetes type 2, controlled Surgical History History of colonoscopy H/O repair of right rotator cuff History of varicose vein stripping H/O shoulder surgery right/2006 Family History Father Diabetes CAD (coronary artery disease) Hyperlipidemia Clotting disorder Factor 5 Stroke Sister Diabetes Hyperlipidemia Brother Hypertension Denies family history of Colon cancer Ovarian cancer Breast cancer Anesthesia complication Bleeding disorder Uterine cancer Thyroid disease Social History Smoking and tobacco/nicotine status: never used tobacco/nicotine Physical Exam 2 Const: COMMON NORMALS: alert HENMT: COMMON NORMALS: normocephalic HEAD & SCALP: normocephalic Neck/C-Spine: COMMON NORMALS: full ROM Resp: COMMON NORMALS: normal respiratory effort and clear to auscultation bilaterally AUSCULTATION: clear to auscultation bilaterally Cardio: COMMON NORMALS: regular rate RATE: regular rate Back/Pelvis: COMMON NORMALS: thoracic and lumbar spine normal to inspection Extremity: NARRATIVE EXTREMITY EXAM: Right upper extremity notes a c0-adaptive cuff for humeral fracture. Distal pulses are intact. Minimal swelling is noted. Patient reports minimal pain. Bruising is noted to the arm. Neuro: SENSORIUM/ORIENTATION: Yes alert Course 2 Vital Signs: Vital signs: Vital Signs Temperature 98.0 F 12/10/23 14:43 Pulse Rate 67 12/10/23 14:43 Respiratory Rate 16 12/10/23 14:43 Blood Pressure 142/77 12/10/23 14:43 Pulse Oximetry 94 12/10/23 14:43 Oxygen Delivery Me thod Room Air 12/10/23 14:43 MDM - Extremity (Nontraumatic) Medical Decision Making Patient was referred to the emergency room for concerns of swelling and bruising to the right upper extremity. Concern for possible DVT. Upper extremity has some mild swelling and bruising throughout the arm. Pulses are intact. Differential diagnosis includes but not limited to fracture, hematoma, edema, DVT. Ultrasound noted no DVT. CBC was normal. Reviewed exam with patient with recommendation for treatment and follow-up. Patient reported understanding. Lab Data 12/10/23 15:07 Laboratory Results WBC 8.35 10^3/uL (3.29-11.43) 12/10/23 15:07 RBC 4.65 10^6/uL (3.85-5.65) 12/10/23 15:07 Hgb 13.40 g/dL (11.27-16.99) 12/10/23 15:07 Hct 40.8 % (36-47) 12/10/23 15:07 MCV 87.7 fl (85-98) 12/10/23 15:07 MCH 28.8 pg (27-33) 12/10/23 15:07 MCHC 32.8 g/dL (30-55) 12/10/23 15:07 RDW 12.8 % (12.1-15.1) 12/10/23 15:07 Plt Count 346 10^3/cmm (157-399) 12/10/23 15:07 MPV 9.0 fL (7.4-10.4) 12/10/23 15:07 Neut % (Auto) 73.0 % 12/10/23 15:07 Lymph % (Auto) 17.2 % 12/10/23 15:07 [place] % (Auto) 6.1 % 12/10/23 15:07 Eos % (Auto) 2.8 % 12/10/23 15:07 Baso % (Auto) 0.7 % 12/10/23 15:07 Neut # (Auto) 6.09 10^3/uL (1.8-7.7) 12/10/23 15:07 Lymph # (Auto) 1.4 10^3/uL (0.8-4.8) 12/10/23 15:07 [place] # (Auto) 0.5 10^3/uL (0.2-0.9) 12/10/23 15:07 Eos # (Auto) 0.2 10^3/uL (0.0-0.8) 12/10/23 15:07 Baso # (Auto) 0.1 10^3/uL (0.0-0.1) 12/10/23 15:07 Nucleated RBC % (auto) 0 % 12/10/23 15:07 Nucleated RBCs # 0.0 /100WBC 12/10/23 15:07 All radiology interpretation(s) finalized by discharge Discharge Plan Discharge Patient Disposition: Home Clinical Impression: Fracture, humerus, anatomical neck Qualifiers: Encounter type: subsequent encounter Fracture type: closed Laterality: right F racture healing: with routine healing Qualified Code(s): S42.291D - Other displaced fracture of upper end of right humerus, subsequent encounter for fracture with routine healing Hematoma of arm Qualifiers: Encounter type: initial encounter Laterality: right Qualified Code(s): S40.021A - Contusion of right upper arm, initial encounter Condition: Stable Prescriptions: No Action clobetasol 0.05 % spray,non-aerosol 1 spray TOPICAL PRN PRN (Reason: Rash) potassium 99 mg tablet 198 mg PO DAILY topiramate [Topamax] 50 mg tablet 50 mg PO BID PRN (Reason: headaches) oxybutynin chloride 5 mg tablet extended release 24hr 5 mg PO TID Qty: 90 3RF Rx Instructions: 5mg x 2 qhs and 5mg x 1 in AM aspirin 81 mg tablet,delayed release (DR/EC) 81 mg PO DAILY mirabegron 25 mg tablet extended release 24 hr 25 mg PO DAILY Qty: 30 0RF atorvastatin 20 mg tablet See Rx Instructions .ROUTE .COMPLEX Qty: 90 0RF Dose Instruction: TAKE ONE TABLET BY MOUTH DAILY Rx Instructions: TAKE ONE TABLET BY MOUTH DAILY irbesartan-hydrochlorothiazide 150-12.5 mg tablet See Rx Instructions .ROUTE .COMPLEX Qty: 30 2RF Dose Instruction: TAKE ONE TABLET BY MOUTH DAILY Rx Instructions: TAKE ONE TABLET BY MOUTH DAILY warfarin 2 mg tablet See Rx Instructions .ROUTE .COMPLEX Qty: 75 2RF Dose Instruction: TAKE TWO TABLETS BY MOUTH DAILY OR USE DIRECTED Rx Instructions: TAKE TWO TABLETS(4 mg) BY MOUTH every other day alternate with two and one half tablets (5 mg) every other day cholecalciferol (vitamin D3) [Vitamin D3] 50 mcg (2,000 unit) capsule See Rx Instructions .ROUTE .COMPLEX Qty: 90 12RF Dose Instruction: TAKE THREE CAPSULES BY MOUTH DAILY Rx Instructions: TAKE THREE CAPSULES BY MOUTH DAILY magnesium 200 mg Tablet 800 mg PO DAILY citalopram 40 mg tablet 40 mg PO DAILY Rx Instructions: TAKE ONE TABLET BY MOUTH EVERY DAY acetaminophen 325 mg capsule 325 mg PO Q4H PRN (Reason: fever or pain) Qty: 60 0RF losartan 50 mg Tablet 50 mg PO DAILY 0RF atorvastatin 40 mg Tablet 40 mg PO DAILY 0RF omega-3 fatty acids 1,000 mg Capsule 1,000 mg PO DAILY 0RF docusate sodium 100 mg Capsule 100 mg PO BID 0RF Discharge Orders: Discharge ED (Routine); Ordered 12/10/23 Ordered By: Ramiro Mao Referrals: Mame Yu MD [Primary Care Provider] - Discharge Diet: Usual diet Discharge Activity: Increase activity as tolerated Patient Instructions: Hematoma (ED) Activity Restrictions/Additional Instructions: Elevate arm is much as possible. Continue with routine care as directed. Follow-up with primary care or orthopedics for further instruction. Return to ED for new concerns. Coding Level of Care Code ED Extract Operator for Angela Garzon
[2023-12-10 19:21] VITALS: BP 110/79; PULSE 61; RESP 18; O2SAT 100
== END 2023-12-10 19:20 | disposition home or self-care (01) ==
PROVIDERS: Emergency Medicine; Emergency Provider Nurse Practitioner Family; PCP Family Medicine
DX: S42.291A Other displaced fracture of upper end of right humerus, initial encounter for closed fracture (principal); S40.021A Contusion of right upper arm, initial encounter; Z79.82 Long term (current) use of aspirin; Z79.01 Long term (current) use of anticoagulants; D68.51 Activated protein C resistance; I10 Essential (primary) hypertension; E11.9 Type 2 diabetes mellitus without complications; X58.XXXA Exposure to other specified factors, initial encounter
CPT/HCPCS: 36415; 85025; 85610; 93971; 99284

== ENCOUNTER → 2023-12-24 14:02 | Outpatient (BNVA) | payer MEDICARE, OTHER, SELFPAY | PROVIDERS: PCP Family Medicine; Visit Provider Orthopaedic Surgery | DX: M54.2 Cervicalgia (principal); S12.690D Other displaced fracture of seventh cervical vertebra, subsequent encounter for fracture with routine healing; W18.30XD Fall on same level, unspecified, subsequent encounter; Y92.008 Other place in unspecified non-institutional (private) residence as the place of occurrence of the external cause; Y93.H9 Activity, other involving exterior property and land maintenance, building and construction | CPT/HCPCS: 72050; 99213 ==

== ENCOUNTER 2023-12-29 06:00 | Outpatient (RCR) | payer MEDICARE, OTHER, SELFPAY | END 2024-01-28 23:59 | disposition home or self-care (01) | LOC: TPT 06:00 | PROVIDERS: PCP Family Medicine; Visit Provider Orthopaedic Surgery Adult Reconstructive Orthopaedic Surgery | DX: S42.301D Unspecified fracture of shaft of humerus, right arm, subsequent encounter for fracture with routine healing (principal); X58.XXXD Exposure to other specified factors, subsequent encounter | CPT/HCPCS: 97110; 97162 ==

== ENCOUNTER → 2024-01-14 12:23 | Outpatient (BNVA) | payer MEDICARE, OTHER, SELFPAY | PROVIDERS: PCP Family Medicine; Visit Provider Family Medicine | DX: D68.51 Activated protein C resistance (principal) | CPT/HCPCS: 85610 ==

== ENCOUNTER → 2024-01-26 10:15 | Outpatient (BNVA) | payer MEDICARE, OTHER, SELFPAY | PROVIDERS: PCP Family Medicine; Visit Provider Family Medicine | DX: Z98.890 Other specified postprocedural states (principal) | CPT/HCPCS: 85610 ==

== ENCOUNTER 2024-01-29 06:00 | Outpatient (RCR) | payer MEDICARE, OTHER, SELFPAY | END 2024-02-27 23:59 | disposition home or self-care (01) | LOC: TPT 06:00 | PROVIDERS: PCP Family Medicine; Visit Provider Orthopaedic Surgery Adult Reconstructive Orthopaedic Surgery | DX: S42.301D Unspecified fracture of shaft of humerus, right arm, subsequent encounter for fracture with routine healing (principal); X58.XXXD Exposure to other specified factors, subsequent encounter | CPT/HCPCS: 97110 ==

== ENCOUNTER → 2024-02-10 11:22 | Outpatient (BNVA) | payer MEDICARE, OTHER, SELFPAY | PROVIDERS: PCP Family Medicine; Visit Provider Family Medicine | DX: Z98.890 Other specified postprocedural states (principal) | CPT/HCPCS: 85610 ==

== ENCOUNTER → 2024-02-24 11:57 | Outpatient (BNVA) | payer MEDICARE, OTHER, SELFPAY | PROVIDERS: PCP Family Medicine; Visit Provider Family Medicine | DX: Z98.890 Other specified postprocedural states (principal) | CPT/HCPCS: 85610 ==

== ENCOUNTER 2024-02-28 06:00 | Outpatient (RCR) | payer MEDICARE, OTHER, SELFPAY | END 2024-03-25 23:59 | disposition home or self-care (01) | LOC: TPT 06:00 | PROVIDERS: PCP Nurse Practitioner Family; Visit Provider Orthopaedic Surgery Adult Reconstructive Orthopaedic Surgery | DX: S42.301D Unspecified fracture of shaft of humerus, right arm, subsequent encounter for fracture with routine healing (principal); X58.XXXD Exposure to other specified factors, subsequent encounter | CPT/HCPCS: 97110 ==

== ENCOUNTER → 2024-03-08 11:11 | Outpatient (BNVA) | payer MEDICARE, OTHER, SELFPAY | PROVIDERS: PCP Nurse Practitioner Family; Visit Provider Nurse Practitioner Family | DX: Z98.890 Other specified postprocedural states (principal) | CPT/HCPCS: 85610 ==

== ENCOUNTER → 2024-03-24 11:04 | Outpatient (BNVA) | payer MEDICARE, OTHER, SELFPAY | PROVIDERS: PCP Nurse Practitioner Family; Visit Provider Nurse Practitioner Family | DX: E55.9 Vitamin D deficiency, unspecified (principal); N32.81 Overactive bladder; R32 Unspecified urinary incontinence; E78.5 Hyperlipidemia, unspecified; I10 Essential (primary) hypertension; E11.9 Type 2 diabetes mellitus without complications; Z79.01 Long term (current) use of anticoagulants; F41.9 Anxiety disorder, unspecified; I26.99 Other pulmonary embolism without acute cor pulmonale; N39.0 Urinary tract infection, site not specified; Z71.3 Dietary counseling and surveillance | CPT/HCPCS: 80053; 80061; 81003; 82306; 83036; 83735; 84443; 87086 ==

== ENCOUNTER → 2024-04-01 09:15 | Outpatient (BNVA) | payer MEDICARE, OTHER, SELFPAY | PROVIDERS: PCP Nurse Practitioner Family; Visit Provider Nurse Practitioner Family | DX: Z98.890 Other specified postprocedural states (principal) | CPT/HCPCS: 85610 ==

== ENCOUNTER → 2024-04-15 10:13 | Outpatient (BNVA) | payer MEDICARE, OTHER, SELFPAY | PROVIDERS: PCP Nurse Practitioner Family; Visit Provider Nurse Practitioner Family | DX: Z98.890 Other specified postprocedural states (principal) | CPT/HCPCS: 85610 ==

== ENCOUNTER → 2024-05-05 13:23 | Outpatient (BNVA) | payer MEDICARE, OTHER, SELFPAY | PROVIDERS: Family Provider Nurse Practitioner Family; PCP Nurse Practitioner Family; Visit Provider Nurse Practitioner Family | DX: D68.51 Activated protein C resistance (principal) | CPT/HCPCS: 85610 ==

== ENCOUNTER → 2024-05-12 10:37 | Outpatient (BNVA) | payer MEDICARE, OTHER, SELFPAY | PROVIDERS: Family Provider Nurse Practitioner Family; PCP Nurse Practitioner Family; Visit Provider Nurse Practitioner Family | DX: E11.9 Type 2 diabetes mellitus without complications (principal); Z98.890 Other specified postprocedural states | CPT/HCPCS: 80053; 83036; 85025; 85610 ==

== ENCOUNTER → 2024-05-16 16:20 | Outpatient (BNVA) | payer MEDICARE, OTHER, SELFPAY | PROVIDERS: Family Provider Nurse Practitioner Family; PCP Nurse Practitioner Family; Visit Provider Nurse Practitioner Family | DX: D68.51 Activated protein C resistance (principal); I26.99 Other pulmonary embolism without acute cor pulmonale | CPT/HCPCS: 85610 ==

== ENCOUNTER 2024-05-25 14:00 | Outpatient (CLI) | payer MEDICARE, OTHER, SELFPAY ==
--- NOTE | 2024-05-25 14:05 | XR_ITS ---
WS: [id number] Cervical spine, 3 views, 05/25/2024 Clinical Data: M54.2 - Cervicalgia Comparison: Cervical spine, 12/24/2023. Findings: No compression fractures are seen. There is degenerative disc narrowing at C5-C6 and C6-C7. There is spurring anteriorly and posteriorly at multiple levels especially C4-C7. No prevertebral soft tissue swelling is seen. Multilevel facet joint arthritis is present from C4-C7. The odontoid is u nremarkable. The soft tissues of the neck and the lung apices are normal. XR/XR cervical spine 3V* [id number] Impression: Multilevel disc narrowing, facet joint arthritis and osteoarthritis.
--- NOTE | 2024-05-25 14:05 | XR_ITS ---
WS: [id number] Thoracic spine, 3 views, 05/25/2024 Clinical Data: M54.6 - Pain in thoracic spine Comparison: Thoracic spine, 05/21/2018 Findings: No compression fractures are seen. The disc heights are normal. There is moderate osteoarthritic spurring of the mid thoracic vertebral bodies. The paravertebral regions are normal. There is a right shoulder arthroplasty. XR/XR thoracic spine 3V* [id number] Impression: Moderate osteoarthritis of the midthoracic vertebral bodies.
== END 2024-05-25 14:01 | disposition home or self-care (01) ==
LOC: RAD 14:04
PROVIDERS: Family Provider Nurse Practitioner Family; PCP Nurse Practitioner Family; Visit Provider Nurse Practitioner Family
DX: M54.6 Pain in thoracic spine (principal); G89.29 Other chronic pain; M48.02 Spinal stenosis, cervical region; M47.894 Other spondylosis, thoracic region; Z98.890 Other specified postprocedural states; M46.02 Spinal enthesopathy, cervical region; M47.892 Other spondylosis, cervical region
CPT/HCPCS: 72040; 72072

== ENCOUNTER 2024-06-01 13:47 | Oncology outpatient (recurring) (ONCR) | payer MEDICARE, OTHER, SELFPAY ==
--- NOTE | 2024-06-01 14:30 | MR_ITS ---
WS: [id number] MRI CERVICAL SPINE NONCONTRAST TECHNIQUE: Sagittal T1, T2 and STIR imaging. Axial T2, gradient, and fiesta imaging. CLINICAL INFORMATION: M54.2 - Cervicalgia FINDINGS: Previously described fracture of the inferior articular facet RIGHT C7 better visualized on the prior CT images no significant edema in this location today. C2-C3: Tiny central protrusion. Mild facet arthropathy. C3-C4: Tiny central protrusion. Mild central canal stenosis. Slight contact of the cervical cord. Mild bilateral bony foraminal narrowing. Mild facet arthropathy. C4-C5: Shallow central protrusion. Slight contact of the cervical cord. Mild bilateral bony foraminal narrowing. Mild facet arthropathy. C5-C6: Disc osteophyte complex with endplate ridging. Shallow RIGHT paracentral protrusion with mild central canal stenosis. Moderate LEFT and mild RIGHT bony foraminal narrowing. C6-C7: Shallow central disc protrusion with slight indentation on the cord. Mild to moderate central canal stenosis. Moderate to severe LEFT greater than RIGHT bony foraminal narrowing. C7-T1: Mild disc bulging. Mild LEFT and no significant RIGHT foraminal narrowing. Spinal canal is patent. T1-T2: Mild LEFT greater than RIGHT bony foraminal narrowing. Shallow central protrusion T3-4. Visualized brain stem structures: Normal. Prevertebral soft tissues: Normal. Small vessel changes in the alfonso. MR/MR cervical spin wo con* [id number] IMPRESSION: 1. Previously described C7 facet fracture better visualized on the prior CT. N o edema in this location today. 2. Multilevel mild to moderate central canal stenosis with disc osteophyte pro trusions worse at C3-4, C4-5, C5-6, and C6-7. 3. Multilevel bony foraminal narrowing moderate to severe at LEFT C5-C6 and bi lateral C6-C7.
== END 2024-06-27 23:59 | disposition home or self-care (01) ==
PROVIDERS: Family Provider Nurse Practitioner Family; PCP Nurse Practitioner Family; Visit Provider Nurse Practitioner Family
DX: M54.2 Cervicalgia (principal); M48.02 Spinal stenosis, cervical region
CPT/HCPCS: 72141; 85610

== ENCOUNTER → 2024-08-18 12:00 | Outpatient (BNVA) | payer MEDICARE, OTHER, SELFPAY | PROVIDERS: Family Provider Nurse Practitioner Family; PCP Nurse Practitioner Family; Visit Provider Nurse Practitioner Family | DX: R19.7 Diarrhea, unspecified (principal) | CPT/HCPCS: 80053; 85025 ==

== ENCOUNTER → 2024-08-19 08:28 | Outpatient (BNVA) | payer MEDICARE, OTHER, SELFPAY | PROVIDERS: Family Provider Nurse Practitioner Family; PCP Nurse Practitioner Family; Visit Provider Nurse Practitioner Family | DX: R19.7 Diarrhea, unspecified (principal) | CPT/HCPCS: 83630; 87045; 87177; 87209; 87427; 87449; 87493 ==

== ENCOUNTER → 2024-09-08 12:44 | Outpatient (BNVA) | payer MEDICARE, OTHER, SELFPAY | PROVIDERS: Family Provider Nurse Practitioner Family; PCP Nurse Practitioner Family; Visit Provider Student in an Organized Health Care Education/Training Program | DX: R19.4 Change in bowel habit (principal) | CPT/HCPCS: 99204 ==

== ENCOUNTER 2024-09-27 07:30 | Day surgery (SDC) | payer MEDICARE, OTHER, SELFPAY ==
[2024-09-27 07:43] VITALS: BP 136/83; PULSE 78; RESP 16; TEMP 36.1; O2SAT 93; BMI 31.4
--- NOTE | 2024-09-27 08:29 | ANES.PREANE2 ---
Pre-Anesthetic Assessment Height/Weight: Height 1.57 m Weight 78.018 kg Temp Pulse Resp BP Pulse Ox O2 Del Method 97 F L 78 16 136/83 93 Room Air 09/27/24 07:43 09/27/24 07:43 09/27/24 07:43 09/27/24 07:43 09/27/24 07:43 09/27/24 07:43 Operation Date: 09/27/24 08:45 Proposed Procedures p Colonoscopy [id number] G0105 R19.4(Not Applicable) - Mio Salvador MD Familial anesthetic complications: None Was Beta Eugenie taken within 24 hours: N/A Was Clonidine taken within 24 hours: N/A Last intake: Intake Last Liquid Date 09/26/24 Last Liquid Time 23:30 Last Solid Date 09/25/24 Last Solid Time 20:00 Social No alcohol and No tobacco Exam alert, oriented x 3, clear to auscultation bilaterally and regular rate & rhythm Airway Submandibular: within normal limits Cervical ROM: Other (Decreased ROM) Mallampati: Class III Dentition: full History/ROS No significant history except as noted and No significant complaints Pulmonary Used to have WILMER, lost 169 pounds and have kept it off for 10 years History of bilateral PE CV/HEM Hypertension and Murmur Factor 5 Leiden mutation None reported Urinary incontinence Hepatic None reported GI None reported Metabolic Diabetes Mellitus Musc/skel Osteoarthritis/DJD Fell 3 months ago C7 compression fracture Neuropsych Anxiety and Depression Anesthetic Plan ASA status: 3 Anesthesia: Anesthesia Evaluation, General and MAC Risk of > 500 ml blood loss (7ml/kg in children): No Medications/Allergies Home Medications ?Medication ?Instructions ?Recorded ?Confirmed ?Last Taken ?Type clobetasol 0.05 % topical spray 1 spray topical PRN PRN Rash 05/30/19 09/27/24 09/20/24 History magnesium 200 mg tablet 800 mg PO DAILY 07/18/20 09/27/24 09/26/24 History acetaminophen 325 mg capsule 325 mg PO Q4H PRN fever or pain 08/05/23 09/27/24 Unknown Rx #60 caps cholecalciferol (vitamin D3) 50 200 mcg (4 x 50 mcg (2,000 unit)) 04/20/24 09/27/24 09/23/24 Rx mcg (2,000 unit) capsule (Vitamin PO DAILY #120 caps D3) topiramate 50 mg tablet (Topamax) 50 mg PO DAILY PRN Headache 06/30/24 09/27/24 Unknown History apixaban 5 mg tablet (Eliquis) 5 mg PO BID 09/23/24 09/27/24 09/23/24 History atorvastatin 20 mg tablet 20 mg PO DAILY 09/23/24 09/27/24 09/26/24 History citalopram 40 mg tablet 40 mg PO DAILY 09/23/24 09/27/24 09/26/24 History irbesartan 150 1 tab PO DAILY 09/23/24 09/27/24 09/26/24 History mg-hydrochlorothiazide 12.5 mg tablet Allergies Allergy/AdvReac Type Severity Reaction Status Date / Time melatonin Allergy Unknown rash Verified 09/23/24 09:01 adhesive tape Allergy PEELS SKIN Verified 09/23/24 09:01 ciprofloxacin (From Cipro) Allergy rash Verified 09/23/24 09:01 Current Medications Generic Name Dose Route Start Last Admin Trade Name Freq PRN Reason Stop Dose Admin Sodium Chloride 1,000 mls @ 15 mls/hr 09/27/24 07:34 09/27/24 07:51 Sodium Chloride 0.9% IV 09/28/24 07:33 15 mls/hr .Q24H PRN Administration COLONOSCOPY FLUIDS PFSH Anesthesia Medical History Multilevel foraminal stenosis Neck pain of over 3 months duration Factor 5 Leiden mutation, heterozygous Hammertoe of right foot REPAIRED Rotator cuff tear arthropathy of right shoulder Recurrent falls while walking Mixed stress and urge urinary incontinence Enrolled in chronic care management Colon polyps Post-menopausal Synovial cyst of lumbar spine Urinary incontinence Anxiety History of closed shoulder dislocation Minimal cognitive impairment Morbid obesity with BMI of 40.0-44.9, adult Lumbosacral radiculopathy at L5 Psoriasis Obstructive sleep apnea of adult Venous insufficiency of both lower extremities Pulmonary hypertension Pulmonary embolism Essential hypertension Diabetes type 2, controlled Surgical History History of colonoscopy History of varicose vein stripping H/O shoulder surgery right/2006 H/O repair of right rotator cuff Family History Father Diabetes CAD (coronary artery disease) Hyperlipidemia Clotting disorder Factor 5 Stroke Sister Diabetes Hyperlipidemia Brother Hypertension Denies family history of Colon cancer Ovarian cancer Breast cancer Anesthesia complication Bleeding disorder Uterine cancer Thyroid disease Social History Smoking and tobacco/nicotine status: former use of tobacco/nicotine
--- NOTE | 2024-09-27 08:43 | W.PM.OPSUD ---
Surgery/Procedure H&P Update DATE OF PROCEDURE: September 27, 2024 DATE H&P PERFORMED: 09/08/24 H&P UPDATE INFORMATION: I have reviewed H&P completed within last 30 days, I have examined patient prior to procedure and No changes to prior documentation PLANNED PROCEDURE: Operation Date: 09/27/24 08:45 Proposed Procedures p Colonoscopy [id number] G0105 R19.4(Not Applicable) - Mio Salvador MD
--- NOTE | 2024-09-27 09:06 | PC.NURSE ---
CECUM TIME 0858
[2024-09-27 09:08] VITALS: BP 94/60; PULSE 58; RESP 16; TEMP 36.4; O2SAT 97
[2024-09-27 09:24] VITALS: BP 110/60; PULSE 60; RESP 18; O2SAT 95
== END 2024-09-27 09:40 | disposition home or self-care (01) ==
PROVIDERS: PCP Nurse Practitioner Family; Visit Provider Student in an Organized Health Care Education/Training Program
PROC: 0DJD8ZZ Inspection of Lower Intestinal Tract, Via Natural or Artificial Opening Endoscopic (ICD-10-PCS; CPT 45378; principal; 2024-09-27 08:45)
DX: K57.30 Diverticulosis of large intestine without perforation or abscess without bleeding (principal); K52.9 Noninfective gastroenteritis and colitis, unspecified; R19.4 Change in bowel habit; I10 Essential (primary) hypertension; D68.51 Activated protein C resistance; G47.33 Obstructive sleep apnea (adult) (pediatric); E11.9 Type 2 diabetes mellitus without complications; Z79.899 Other long term (current) drug therapy; Z79.01 Long term (current) use of anticoagulants; Z88.8 Allergy status to other drugs, medicaments and biological substances; Z91.09 Other allergy status, other than to drugs and biological substances; Z86.711 Personal history of pulmonary embolism; Z87.891 Personal history of nicotine dependence
CPT/HCPCS: 45380; 88305; J2704; J7030

== ENCOUNTER → 2024-10-10 11:09 | Outpatient (BNVA) | payer MEDICARE, OTHER, SELFPAY | PROVIDERS: PCP Nurse Practitioner Family; Visit Provider Student in an Organized Health Care Education/Training Program | DX: Z09 Encounter for follow-up examination after completed treatment for conditions other than malignant neoplasm (principal) | CPT/HCPCS: 99213 ==

== ENCOUNTER → 2024-11-15 12:05 | Outpatient (BNVA) | payer MEDICARE, OTHER, SELFPAY | PROVIDERS: PCP Nurse Practitioner Family; Visit Provider Nurse Practitioner Family | DX: E11.9 Type 2 diabetes mellitus without complications (principal); F41.9 Anxiety disorder, unspecified; E55.9 Vitamin D deficiency, unspecified | CPT/HCPCS: 80053; 80061; 82306; 82607; 83036; 84443; 85025 ==

== ENCOUNTER → 2024-12-21 09:32 | Outpatient (BNVA) | payer MEDICARE, OTHER, SELFPAY | PROVIDERS: PCP Nurse Practitioner Family; Visit Provider Nurse Practitioner Family | DX: R89.9 Unspecified abnormal finding in specimens from other organs, systems and tissues (principal) | CPT/HCPCS: 80053; 82310; 83970; 85025 ==

== ENCOUNTER → 2025-01-24 13:25 | Outpatient (BNVA) | payer MEDICARE, OTHER, SELFPAY | PROVIDERS: PCP Nurse Practitioner Family; Visit Provider Nurse Practitioner Family | DX: E83.51 Hypocalcemia (principal) | CPT/HCPCS: 82310; 83970 ==